=== PATIENT | male | born 1945 | race Caucasian/White ===

== ENCOUNTER 2023-04-17 09:09 | Emergency (ER) | payer MEDICARE, OTHER, SELFPAY ==
[2023-04-17 09:16] VITALS: BP 148/81
--- NOTE | 2023-04-17 10:55 | ED.GENMED ---
History of Present Illness
General
Chief Complaint: Chest Pain
Source: patient
Exam Limitations: none
Time Seen by Provider: 04/17/23 10:37
Nursing documentation reviewed up to this point in time: agreed with
Travel History
Have you had any contact with someone who has COVID-19?: No
Do you have any symptoms of coronavirus? Fever > 100 degrees, chills, cough, shortness of breath, sore throat, loss of taste or smell, muscle aches, or headache?: No
History of Present Illness
History of Present Illness:
Patient with history of CAD, on aspirin and Brilinta, and pulmonary embolism over 10 years ago after traveling, presents to ED secondary to intermittent right-sided 'humming' sensation over the past 3 days, after returning from 2-hour flight to
[place]. Denies chest pain. Denies shortness of breath. Denies nausea, vomiting, or diarrhea. Denies leg pain or swelling. Denies back pain. Patient states that when he had MRI last October and pulmonary embolism, his symptoms were completely
different. Of note, over the past 4 to 5 days, patient also has had increased nasal congestion and intermittent cough. In addition, at the recommendation of his dish cloth inspector, Dr. Salgado, prior to departure to [place], patient switched his
anticoagulation medications from Brilinta to Xarelto 10 mg, 3 days preceding the trip, and 3 days after returning from the trip. Patient restarted Brilinta last night.
Past History
Past History
ED Past Medical History: Arrthythmia, Asthma, HTN and Other (DVT, PE, Sleep apnea, sciatica)
ED Past Surgical History: Appendectomy
Patient has exhibited threatening behavior?: No
PSI?: No
Social History
Tobacco: Non-smoker
Alcohol: None
Personal:
Living: with family
Review of Systems
Review of Systems
Allergies reviewed?: Yes
All Other Systems: ROS reviewed and negative except as documented in HPI and ROS
Constitutional: Reports no symptoms
EENT: Reports other (Nasal congestion)
Respiratory: Reports cough; Denies trouble breathing
Cardiac: Reports no symptoms; Denies chest pain
ABD/GI: Reports no symptoms
: Reports no symptoms
Musculoskeletal: Reports no symptoms
Skin: Reports no symptoms
Neurological: Reports no symptoms
Phy Exam
Physical Exam
Physical Exam:
Physical Exam
General: no apparent distress, not acutely ill. afebrile
Head: nc/at. eomi
Neck: supple. no meningeal signs
Heart: s1/s2 regular rate and rhythm, no murmur. equal radial pulses.
Lungs: no acute respiratory distress. clear bilaterally. chest wall nontender to palpation
Abdomen: normal bowel sounds. not tender.
Neuro: alert and oriented. no focal neurological deficits
Skin: no rash
Psychiatric: well kept. interactive and cooperative
Extremities: no edema. no calf tenderness.
Scores
Heart Score for Chest Pain Patients
STEMI patient?: Not applicable
Course
Orders/Labs/Results
Orders:
Orders
04/17/23 09:11
Electrocardiogram (*1) Urgent
Reason for Study: Chest Pain
EKG- Treatment ONCE
04/17/23 10:49
Albuterol Nebs [Ventolin Nebules] 2.5 mg INH R NOW STA
CR Chest - 2 Views Urgent
Comment:
Reason For Exam: cough/sob
04/17/23 11:09
COVID-19 Antigen Urgent
Source: Nasal Swab
04/17/23 13:40
Dexamethasone Pf [Decadron] 10 mg PO NOW STA
Vital Signs
Initial and Last Documented VS:
Initial Vital Signs
Temp Pulse Resp BP Pulse Ox
97.8 F 77 18 148/81 96
04/17/23 09:16 04/17/23 09:16 04/17/23 09:16 04/17/23 09:16 04/17/23 09:16
Last Documented Vital Signs
Temp Pulse Resp BP Pulse Ox
97.8 F 77 18 144/94 95
04/17/23 09:16 04/17/23 09:16 04/17/23 09:16 04/17/23 11:10 04/17/23 11:30
MDM/Problems Addressed
MDM/Problems Addressed:
History and exam consistent with likely viral mediated URI, less likely PE or any other acute process. Pt expresses understanding at time of discharge. As such, patient will be treated supportively with symptomatic treatment, along with close PCP
f/u. Pt will return with worsening symptoms.
*Critical Care Note
Total Time (30-74mins, 75-104mins- exclusive of procedures): Not Applicable
ED Attending Note
-
Portions of this chart may have been created with voice recognition software.� Occasional wrong word or��sound alike� substitutions may have occurred due to the inherent limitations of voice recognition software.
Discharge Plan
Departure
Patient Disposition: Home (Routine Discharge)
Date of Disposition: 04/17/23
Time of Disposition: 13:41
Patient with high blood pressure during this ER visit?: Yes
Condition: Good
Discharge Problem:
Bronchitis
Instructions: Acute Bronchitis, Adult (DC)
Prescriptions:
No Action
aspirin 81 MG tablet,delayed release (DR/EC)
81 mg PO DAILY
fluoxetine 10 mg Tablet
20 mg PO DAILY
lisinopril 10 mg Tablet
10 mg PO DAILY
Brilinta 90 mg Tablet
90 mg PO BID Qty: 60 12RF
ascorbic acid (vitamin C) [Vitamin C] 500 mg Tablet
1,000 mg PO NOON Qty: 0
saw palmetto 160 mg Capsule
160 mg PO NOON Qty: 0
cholecalciferol (vitamin D3) [Vitamin D3] 25 mcg (1,000 unit) Tablet
25 mcg PO NOON Qty: 0
acetaminophen [Tylenol] 325 mg Tablet
650 mg PO Q6HPRN PRN (Reason: mild pain)
Ocuvite Tablet
1 tab PO NOON
[place] 3 Fish Oil 684-1,200 mg Capsule,Delayed Release(Dr/Ec)
2 cap PO NOON
Metamucil Fiber Thin 2 gram Wafer
2 wafer PO QPM
Airborne (ascorbic acid) 250-8.875 mg Tablet,Chewable
3 tab PO DAILYPRN PRN (Reason: sore throat, cough, sneezing )
atorvastatin 20 mg tablet
40 mg PO QPM
Referrals:
Linda Rees CRNP [Family Provider] -
Activity Restrictions/Additional Instructions:
As discussed, please follow-up with your primary care physician for further evaluation and treatment.
Interventions
Interventions:
*ED COVID-19 Vaccine History Last Done: 04/17/23 09:16
*Nursing Disposition Last Done: 04/17/23 13:50
ED- Cardiac Assessment Last Done: 04/17/23 11:17
Discharge Date and Time
Discharge Date/Time: 04/17/23 13:50
[2023-04-17] MEDS: VENTOLIN NEBULES 2.5 MG INH (11:06)
[2023-04-17 11:10] VITALS: BP 144/94
[2023-04-17 11:50] LABS: COVID-19 Antigen Negative (Negative)
[2023-04-17] MEDS: DECADRON 10 MG PO (13:46)
== END 2023-04-17 13:50 | disposition home or self-care (01) ==
LOC: EMR 09:09
PROVIDERS: EMERGENCY PHYSICIAN Emergency Medicine; FAMILY PHYSICIAN Nurse Practitioner Adult Health
DX: J40 Bronchitis, not specified as acute or chronic (principal); Z11.52 Encounter for screening for COVID-19; I10 Essential (primary) hypertension; I25.10 Atherosclerotic heart disease of native coronary artery without angina pectoris; Z79.01 Long term (current) use of anticoagulants; Z86.711 Personal history of pulmonary embolism
CPT/HCPCS: 99285; 94640; 71046; 87811; 93005

== ENCOUNTER 2023-09-26 11:07 | Inpatient (IN) | payer MEDICARE, OTHER, SELFPAY ==
[2023-09-26] VITALS (12 sets, daily range): BP systolic 105–155; BP diastolic 67–90
--- NOTE | 2023-09-26 09:19 | ED.GENMED ---
History of Present Illness
General
Chief Complaint: Cardiac Symptoms
Source: patient, records and ambulance crew
Exam Limitations: none
Time Seen by Provider: 09/26/23 09:16
Nursing documentation reviewed up to this point in time: agreed with
History of Present Illness
History of Present Illness:
Patient is a 78-year-old male with known right coronary artery disease based on catheterization from 11 months ago and presents via EMS with crushing chest pain and diaphoresis. Patient states he had breakfast today and began to have some
discomfort and feeling nauseous. Patient states he felt he needed to have a bowel movement and did and the pain and diaphoresis got worse. Patient denies shortness of breath. Patient on prehospital EKG showed inferior wall STEMI. Patient was
given nitro and 324 mg of aspirin en route. Patient states that crushing chest pain was 10 out of 10 but seems again slightly better at this time. Patient denies any recent exertional symptoms. Patient denies fever or chills. Patient denies
nasal congestion, sore throat or cough. Patient denies abdominal pain, vomiting or diarrhea. Patient denies any leg pain or swelling.
Past History
Past History
ED Past Medical History: Arrthythmia, Asthma, CAD, HTN and Other (DVT, PE, Sleep apnea, sciatica)
ED Past Surgical History: Appendectomy
Patient has exhibited threatening behavior?: No
PSI?: No
Social History
Tobacco: Non-smoker
Alcohol: None
Personal:
Living: with family
Review of Systems
Review of Systems
All Other Systems: ROS reviewed and negative except as documented in HPI and ROS
Constitutional: Reports no symptoms
EENT: Reports no symptoms
Respiratory: Denies cough or trouble breathing
Cardiac: Reports chest pain and diaphoresis; Denies palpitations or syncope
ABD/GI: Reports nausea; Denies abdominal pain, vomiting or diarrhea
: Reports no symptoms
Musculoskeletal: Reports no symptoms
Skin: Reports no symptoms
Neurological: Reports no symptoms
Hematologic/Lymphatic: Reports no symptoms
Phy Exam
Physical Exam
Physical Exam:
Physical Exam
General: significant distress, alert and appropriate, well nourished, well hydrated
HENT: Normocephalic, supple with no lymphadenopathy, no thyromegaly
Eyes: Clear sclera, conjuctiva without injection
Heart: Regular rhythm and bradycardic rate. No S3, S4. No murmur. No NVD
Lungs: No respiratory distress, no stridor, lung sounds clear and equal bilaterally, chest wall symmetrical and nontender
Abdomen: Soft, nontender, no organomegaly, BS good
Neuro: Alert and oriented x 3, CN II - XII intact, no motor focality
Skin: no rash
Psychiatric: well kept. interactive and cooperative
Extremities: No edema, cyanosis, tenderness, Good and equal peripheral pulses.
Scores
Heart Score for Chest Pain Patients
STEMI patient?: Yes
Course
Orders/Labs/Results
Orders:
Orders
09/26/23 09:10
EKG [Electrocardiogram (*1)] Urgent
Reason for Study: Chest Pain
EKG- Treatment ONCE
09/26/23 09:12
Complete Blood Count/With Diff Urgent
Comprehensive Metabolic Panel Urgent
Prothrombin Time Urgent
Troponin I Urgent
Morphine Sulfate 4 mg .ROUTE .STK-MED ONE
Ondansetron Injectable [Zofran] 4 mg .ROUTE .STK-MED ONE
*Pulse Oximetry
Patient hypoxic: no
*EKG
Interpreted by ED Provider?: Yes
EKG Intrepretation Date: 09/26/23
EKG Intrepretation Time: 09:22
Interpretation: abnormal
Comparison EKG: changes noted (Increased ST elevation in the inferior leads)
Heart Rate: 52
Rate: bradycardiac
Rhythm: sinus
[place]: left axis deviation
Interval: normal interval
QRS Pattern: right bundle branch block
Ischemia: ST elevation (inferiorly)
*Mannequin Mold Maker Interpretation
Rate: bradycardiac
Interpretation: normal
Heart Rate: 52
Rhythm: sinus
*Critical Care Note
Total Time (30-74mins, 75-104mins- exclusive of procedures): 20 minutes
ED Attending Note
-
Portions of this chart may have been created with voice recognition software.� Occasional wrong word or��sound alike� substitutions may have occurred due to the inherent limitations of voice recognition software.
Discharge Plan
Departure
Patient Disposition: DRUPAL DEVELOPER
Date of Disposition: 09/26/23
Time of Disposition: 09:23
Admit to: laboratory technologist
Admit to doctor: aurelia
Presentation/result/management discussed w/ accepting MD/DO: cardiology
Patient with high blood pressure during this ER visit?: Yes
Covid-19: Not Applicable
Discharge Problem:
ST elevation (STEMI) myocardial infarction
Prescriptions:
No Action
aspirin 81 MG tablet,delayed release (DR/EC)
81 mg PO DAILY
fluoxetine 10 mg Tablet
20 mg PO DAILY
lisinopril 10 mg Tablet
10 mg PO DAILY
Brilinta 90 mg Tablet
90 mg PO BID Qty: 60 12RF
ascorbic acid (vitamin C) [Vitamin C] 500 mg Tablet
1,000 mg PO NOON Qty: 0
saw palmetto 160 mg Capsule
160 mg PO NOON Qty: 0
cholecalciferol (vitamin D3) [Vitamin D3] 25 mcg (1,000 unit) Tablet
25 mcg PO NOON Qty: 0
acetaminophen [Tylenol] 325 mg Tablet
650 mg PO Q6HPRN PRN (Reason: mild pain)
Ocuvite Tablet
1 tab PO NOON
[place] 3 Fish Oil 684-1,200 mg Capsule,Delayed Release(Dr/Ec)
2 cap PO NOON
Metamucil Fiber Thin 2 gram Wafer
2 wafer PO QPM
Airborne (ascorbic acid) 250-8.875 mg Tablet,Chewable
3 tab PO DAILYPRN PRN (Reason: sore throat, cough, sneezing )
atorvastatin 20 mg tablet
40 mg PO QPM
Interventions
Interventions:
*Risk Screen - Suicide Last Done: 09/26/23 09:16
*General Assessment Last Done: 09/26/23 09:16
*Neglect/Abuse Screening Last Done: 09/26/23 09:16
*ED COVID-19 Vaccine History Last Done: 09/26/23 09:17
Discharge Date and Time
Print Language: VINCENTIAN
[2023-09-26 09:21] LABS: % Basophils 0.5 % (0-2); % Eosinophils 2.7 % (0-6); % Immature Granulocytes 0.9 % (0-0.5); % Lymphocytes 32.2 % (20.5-51.1); % Monocytes 9.3 % (1.7-9.3); % Neutrophils 54.4 % (42.2-75.2); Absolute Eosinophils 0.2 10^3/uL (0-0.7); Absolute Immature Granulocytes 0.1 10^3/uL (0-0.05); Absolute Lymphocytes 2.8 10^3/uL (1.2-3.4); Absolute Monocytes 0.8 10^3/uL (0.1-0.6); Absolute Neutrophils 4.7 10^3/uL (1.4-6.5); Hematocrit 42.7 % (39.0-52.0); Hemoglobin 14.6 g/dL (13.0-18.0); Mean Corp Hgb Conc. 34.2 g/dL (33.0-37.0); Mean Corpuscular Volume 87.7 fL (80.0-94.0); Mean Platelet Volume 9.3 fL (7.4-10.4); Nucleated Red Blood Cells % 0 % (-); Platelet Count 183 10^3/uL (130-400); Red Blood Cell Count 4.87 10^6/uL (4.70-6.10); Red Cell Dist. Width 14.5 % (11.5-14.5); White Blood Cell Count 8.6 10^3/uL (4.8-10.8)
[2023-09-26 09:29] LABS: INR 1.02; PT 13.2 Sec (11.4-14.6)
[2023-09-26 09:31] LABS: ALT (SGPT) 31 U/L (0-50); AST (SGOT) 34 U/L (17-59); Albumin 4.1 g/dl (3.5-5.0); Alkaline Phosphatase 67 U/L (38-126); Blood Urea Nitrogen 21 mg/dl (9-20); Calcium 9.1 mg/dl (8.4-10.2); Carbon Dioxide 21 mmol/L (22-30); Chloride 106 mmol/L (98-107); Glucose 160 mg/dl (70-99); Potassium 4.4 mmol/L (3.5-5.1); Sodium 138 mmol/L (135-145); Total Protein 6.6 g/dl (6.3-8.2); eGFR > 60.00
[2023-09-26 09:45] LABS: ACT-LR - POC 215 Seconds (116-155)
[2023-09-26 09:48] LABS: Troponin I 0.412 ng/ml
[2023-09-26 10:20] LABS: ACT-LR - POC 176 Seconds (116-155)
[2023-09-26 10:33] LABS: ACT-LR - POC 265 Seconds (116-155)
--- NOTE | 2023-09-26 11:24 | PTCARENOTE ---
received pt from [facility], right radial band CDI. Pt is SB on the monitor, hr 48, vss. pt offers no complaints at this time. at bedside visiting. pt oriented to unit, call tsang within reach.
--- NOTE | 2023-09-26 11:28 | HPS.HSE ---
Family Physician
-
Family Physician: INTERVIEWE UNKNOWN - PT NOT
Chief Complaint
-
Chest pain
History of Present Illness
Mr. Rebolledo is a 78-year-old gentleman with past medical history of hypertension, bifascicular block, hyperlipidemia, prior DVT/PE, NSTEMI in October 2022 with peak troponin of 5.86 with cardiac catheterization showing likely occlusion of the RV
marginal, medically managed on aspirin and Plavix, obstructive sleep apnea, paroxysmal SVT (found to have short runs of atrial tachycardia on prior Holter monitors), stable asthma who presents with acute onset substernal chest discomfort this
morning found to have an inferior ST elevation CT in the setting of a baseline right bundle branch block for which heart catheterization team was emergently activated and patient was taken to the heart catheterization lab. He had breakfast this
morning and started to experience 10-10 substernal chest discomfort for which she called EMS. Initial EKG showing ST elevation in the inferior leads for which a prehospital ST elevation CT was called in. Patient had improvement in symptoms by time
he presented to the emergency department with chest pain down to 5 out of 10.
Medical History
Past Medical History
Past Medical History: Reports CAD, HTN and Hypercholesterolemia
Past Surgical History: Reports None
Social History
Tobacco: Non-smoker
Alcohol: None
Drug: None
Personal:
Living: With Family
Employment: Retired
Family History
Family History: Not pertinent
Allergies / Home Medications
Allergies reflects when Allergies were last updated in [facility].
Home Medications with original date entered in [facility]
Allergy/Medication List:
Allergy list reviewed.
Medication List not available.
Review of Systems
-
A 12 point ROS was completed and negative except as noted: Yes
Physical Exam
Vital Signs
Vital Signs
Temp Pulse Resp BP Pulse Ox
97.9 F 54 12 127/78 96
09/26/23 09:15 09/26/23 09:15 09/26/23 09:15 09/26/23 09:15 09/26/23 09:15
Physical Exam
General: Well Developed, Well Nourished, Appears in Distress and Other (Mild distress from chest pain)
HEENT: NormoCephalic and Moist mucous membranes
Respiratory: Clear and Non Labored Respirations; No Wheezes or Crackles
Cardiac: S1/S2, Regular Rhythm, Bradycardia and Carotid Pulses; No Murmur, Rub or Gallop
Breast: Deferred by me
GI: Soft, Non Tender, Non Distended and Normal Bowel Sounds
Musculoskeletal: No Clubbing, No Cyanosis and No Edema
Neuro: AO x 3
Psych: Other (Mild distress from pain)
Laboratory Results
-
09/26/23 09:12
09/26/23 09:12
Laboratory Results
PT 13.2 Sec (11.4-14.6) 09/26/23 09:12
INR 1.02 09/26/23 09:12
Total Bilirubin 2.0 mg/dl (0.2-1.3) H 09/26/23 09:12
AST 34 U/L (17-59) 09/26/23 09:12
ALT 31 U/L (0-50) 09/26/23 09:12
Alkaline Phosphatase 67 U/L (38-126) 09/26/23 09:12
Troponin I 0.412 ng/ml H* 09/26/23 09:12
Data Reviewed
-
Critical Care Time (in minutes): 35
Diagnostic Radiology: Report Reviewed by me
Ultrasound: Report Reviewed by me
Medical Tests (Nuc Med, Echo, EKG etc): Image Personally Visualized and interpreted
Lab Data: Labs Reviewed by me
Old Records: Reviewed
Impression/Plan
-
IMPRESSION: Mr. Rebolledo is a 78-year-old gentleman with past medical history of hypertension, bifascicular block, hyperlipidemia, prior DVT/PE, NSTEMI in October 2022 with peak troponin of 5.86 with cardiac catheterization showing likely occlusion of
the RV marginal, medically managed on aspirin and Plavix, obstructive sleep apnea, paroxysmal SVT (found to have short runs of atrial tachycardia on prior Holter monitors), stable asthma who presents with acute onset substernal chest discomfort this
morning found to have an inferior ST elevation CT in the setting of a baseline right bundle branch block for which heart catheterization team was emergently activated and patient was taken to the heart catheterization lab.
PLAN:
#Inferior STEMI
-Status post mid to distal RCA PCI with a 4.0 x 28 mm Xience shiraz point drug-eluting stent, postdilated with a 5.0 x 20 mm NC trek balloon at 18 giovanny.
-Uninterrupted dual antiplatelet therapy with daily baby aspirin and Brilinta 90 mg twice daily along with high intensity statin.
-Echocardiogram is pending
-Trend troponins and EKGs with close monitoring on telemetry. Hold on beta-blockers for now given baseline bradycardia in the setting of bifascicular block. Of note, patient has had wheezing previously in the setting of known asthma
-Eventual referral for outpatient cardiac rehab
-Aggressive management of cardiovascular risk factors
#Hypertension
-Chronic, stable.
-Hold lisinopril for now until we have a better handle of hemodynamics. Resume home lisinopril when stable.
#Hypercholesterolemia
-Chronic, stable.
-Change from 40 mg of daily atorvastatin to 80 mg daily
#Prior history of DVT/PE
-Has been taking rivaroxaban 10 mg PRN flying.
#Asthma
-Stable.
Hayley Kidd MD, [facility], [facility]
--- NOTE | 2023-09-26 11:39 | ITS.CL.CATH ---
Court Administrator - Catheterization
Cardiac Catheterization
Procedure Report:
LEFT HEART CATHETERIZATION AND CORONARY INTERVENTION
Date of Procedure: September 26, 2023
Referring: [place] emergency department
PROCEDURES:
1. Left heart catheterization, coronary angiogram.
2. Mechanical thrombectomy using EDUARDO catheter.
3. Successful percutaneous coronary artery intervention of 100% acute thrombotic distal RCA occlusion (EPI 0 flow, lesion type C) with a 4.0 x 28 mm Xience shiraz point drug-eluting stent, postdilated with a 5.0 x 20 mm NC trek balloon at 18 giovanny,
with an excellent angiographic result.
INDICATION: Mr. Rebolledo is a 78-year-old gentleman with past medical history of hypertension, bifascicular block, hyperlipidemia, prior DVT/PE, NSTEMI in October 2022 with peak troponin of 5.86 with cardiac catheterization showing likely occlusion of
the RV marginal, medically managed on aspirin and Plavix, obstructive sleep apnea, paroxysmal SVT (found to have short runs of atrial tachycardia on prior Holter monitors), stable asthma who presents with acute onset substernal chest discomfort this
morning found to have an inferior ST elevation VT in the setting of a baseline right bundle branch block for which heart catheterization team was emergently activated and patient was taken to the heart catheterization lab. He was eating breakfast
this morning and had sudden onset of 10 out of 10 substernal chest discomfort for which she called EMS. Initial ECG concerning for possible ST elevation in the inferior leads for which a prehospital ST elevation VT was called in. Patient was still
having 5 out of 10 chest pain in the emergency department. He was given 5000 units of unfractionated IV heparin, 1 sublingual nitroglycerin, 180 mg of ticagrelor, 4 mg of Zofran and emergently brought up to the heart catheterization lab after
informed detailed consent was reviewed
ACCESS: Right radial artery, 6 [place] sheath, under ultrasound guidance
HEMODYNAMICS : (mmHg)
AO (s/d) : 113/64
LV (s/d) : 108/13
LVEDP : 30
CORONARY FINDINGS
DOMINANCE: Right
LEFT MAIN: The left main artery is a large-caliber vessel which gives rise to the left anterior descending artery and the left circumflex artery. There is minimal luminal irregularities.
LEFT ANTERIOR DESCENDING: The left anterior descending artery is a medium caliber vessel which gives rise to 2 major diagonal branches as it courses to the anterior interventricular groove towards the apex. There is minimal luminal irregularities.
CIRCUMFLEX: The left circumflex artery is a medium caliber vessel which gives rise to 2 major obtuse marginal branches. There is minimal luminal irregularities.
RIGHT CORONARY ARTERY: The right coronary artery is a large-caliber, very ectatic dominant vessel which gives rise to the right posterior descending artery and the right posterolateral system. There is 100% distal RCA acute thrombotic occlusion
with EPI 0 flow. This was culprit of presenting acute coronary syndrome and intervention was performed
CORONARY INTERVENTION: Additional heparin was given to maintain therapeutic ACT throughout the case. Given the high burden of thrombus, we also additionally gave to bolus doses of Integrilin. Using a 6 [place] JR4 guide we attempted initially
crossing the lesion with a 190 cm 0.014' power turn flex coronary wire however there was very poor guide support. At this time we decided to switch out the guides and brought in a 6 [place] AL 0.75 guide catheter and through this attempted again
crossing with a power turn flex wire however the wire kept prolapsing into the mid to distal RCA and not crossing the lesion. We left the wire in place in the mid RCA and brought in a 300 cm 0.014' corporate pilot 50 coronary wire through a quick cross
microcatheter and after multiple attempts we were finally able to successfully cross the lesion. We advanced the microcatheter into the distal RCA and confirmed that we were indeed intraluminal. Through the quick cross we now advanced a 300 cm
0.014 BMW coronary wire into the large left posterolateral branch. We retracted out the quick cross and over the wire we advanced the EDUARDO catheter performing multiple passes in the distal vessel. Subsequently we tried advancing a stent however we
were not able to successfully advance this into the distal vessel. At this point we brought in a 6 [place] guide liner for additional support to deliver the stent. Through guide liner support, we placed a 4.0 x 28 mm Xience shiraz point drug-eluting
stent in the distal RCA with samaritan of antegrade flow. The stent was further postdilated using a 5.0 x 20 mm NC trek balloon at 18 giovanny with an excellent angiographic result and EPI-3 flow restored into the distal branches. Patient was chest
pain-free at the end of the case. No acute complications.
SEDATION: 77 minutes of procedural sedation was utilized. An independent medical billing supervisor was present to assist with and help manage the patient's level of consciousness and physiologic status.
RADIATION SUMMARY: Fluoro Time (min): 21.2, Dose (mGy): 1408.3, DAP (Gy.cm2) : 117.1
Closure Device: Vascular band over right radial artery, 11cc air
CONCLUSIONS
1. Successful percutaneous coronary artery intervention of 100% acute thrombotic distal RCA occlusion (EPI 0 flow, lesion type C) with a 4.0 x 28 mm Xience shiraz point drug-eluting stent, postdilated with a 5.0 x 20 mm NC trek balloon at 18 giovanny, with
an excellent angiographic result.
2. Otherwise nonobstructive coronary artery disease.
3. Elevated LVEDP at 30 mmHg
RECOMMENDATIONS
1. Uninterrupted dual antiplatelet therapy with daily baby aspirin and Brilinta 90 mg twice daily along with high intensity statin.
2. Echocardiogram is pending
3. Trend troponins and EKGs with close monitoring on telemetry. Hold on beta-blockers for now given some bradycardia during the procedure, initiate once able.
4. Eventual referral for outpatient cardiac rehab
5. Aggressive management of cardiovascular risk factors
Hayley Kidd MD, FAC, [facility]
[2023-09-26] MEDS: TYLENOL 650 MG PO (11:45)
[2023-09-26 15:26] LABS: Glycohemoglobin (HgbA1c) 5.6 % (4.0-5.6)
--- NOTE | 2023-09-26 16:02 | PTCARENOTE ---
pt had a 14 beat run of VT, pt asymptomatic, VSS. Notified Dr. Grant about VT and trop of 111. continue with care. pt educated on plan if care and pt verbalized understanding. call tsang within reach.
[2023-09-26] MEDS: LIPITOR 80 MG PO (18:00)
[2023-09-26] MEDS: HEPARIN 5000 UNITS SC ×2 (18:00→23:46)
[2023-09-26] MEDS: BRILINTA 90 MG PO (20:32)
[2023-09-27 02:13] VITALS: BP 124/72
[2023-09-27 02:27] LABS: % Basophils 0.3 % (0-2); % Eosinophils 0.7 % (0-6); % Immature Granulocytes 0.5 % (0-0.5); % Monocytes 10.8 % (1.7-9.3); % Neutrophils 77.7 % (42.2-75.2); Absolute Eosinophils 0.1 10^3/uL (0-0.7); Absolute Immature Granulocytes 0.1 10^3/uL (0-0.05); Absolute Lymphocytes 1.1 10^3/uL (1.2-3.4); Absolute Monocytes 1.1 10^3/uL (0.1-0.6); Absolute Neutrophils 8.1 10^3/uL (1.4-6.5); Hematocrit 42.8 % (39.0-52.0); Hemoglobin 14.1 g/dL (13.0-18.0); Mean Corp Hgb Conc. 32.9 g/dL (33.0-37.0); Mean Corpuscular Hgb 30.2 pg (27.0-31.0); Mean Corpuscular Volume 91.6 fL (80.0-94.0); Mean Platelet Volume 9.3 fL (7.4-10.4); Nucleated Red Blood Cells % 0 % (-); Platelet Count 164 10^3/uL (130-400); Red Blood Cell Count 4.67 10^6/uL (4.70-6.10); Red Cell Dist. Width 14.4 % (11.5-14.5); White Blood Cell Count 10.5 10^3/uL (4.8-10.8)
[2023-09-27 02:48] LABS: Blood Urea Nitrogen 20 mg/dl (9-20); Calcium 8.8 mg/dl (8.4-10.2); Carbon Dioxide 25 mmol/L (22-30); Chloride 108 mmol/L (98-107); Glucose 116 mg/dl (70-99); HDL Cholesterol 50 mg/dl; LDL Cholesterol, Calculated 54 mg/dl; Potassium 4.6 mmol/L (3.5-5.1); Sodium 139 mmol/L (135-145); Total Cholesterol 124 mg/dl (50-199); Triglyceride 100 mg/dl (10-149); Very Low Density Lipoprotein 20 mg/dl (0-30); eGFR > 60.00
--- NOTE | 2023-09-27 05:15 | PTCARENOTE ---
Patient resting comfortable overnight. Denies chest pain, troponin trending downward, right radial site CDI. SB occasional PVC, call tsang in reach
[2023-09-27 07:19] VITALS: BP 111/71
[2023-09-27] MEDS: LOW STRENGTH ASPIRIN 81 MG PO (07:55)
[2023-09-27] MEDS: BRILINTA 90 MG PO ×2 (07:55→19:52)
[2023-09-27] MEDS: HEPARIN 5000 UNITS SC ×3 (07:55→23:31)
[2023-09-27] MEDS: LIDOCAINE 4% PATCH 1 PATCH TOPICAL (09:52)
[2023-09-27 11:14] VITALS: BP 115/63
--- NOTE | 2023-09-27 13:30 | CM ---
jonah langston at [facility]- his first month $ 109.83 he is in the coverage gap, pt is aware and is agreeable to the cost, 30 day free coupon in pts red dc folder
--- NOTE | 2023-09-27 15:21 | CM ---
spoke to pt in room, he is prev indep, lives with is in a 2 story home with a first floor set up and 3 steps to enter. he denies any dc planning needs or dme's. plan is for dc to home when medically stable.
[2023-09-27 15:25] VITALS: BP 100/78
[2023-09-27] MEDS: LIPITOR 80 MG PO (17:41)
[2023-09-27 18:44] VITALS: BP 117/93
--- NOTE | 2023-09-27 22:56 | PTCARENOTE ---
Denied any complaints of pain or discomfort. SB, SR on the monitor 50-60's .
[2023-09-27 23:32] VITALS: BP 91/64
[2023-09-28 03:35] VITALS: BP 107/76
--- NOTE | 2023-09-28 07:02 | W.PN.UPDATE ---
Update Note
Progress Note Update
I saw and examined Mr Rebolledo yesterday 09-26 . Note somehow deleted
He had no CP, SOB or palpitations
Telem review showed 6-8 beat run NSVT in early AM hours on 09-26.
Labs all stable
Angiogram reviewed- excellent RCA PCI result for acute inferior STEMI by Dr. Kidd
ECHO reviewed showing normal LVEF without significant valve disease. Mildly dilated aorta
Plan made for continued monitoring with probable discharge 09-27
[2023-09-28] MEDS: HEPARIN 5000 UNITS SC (07:36)
[2023-09-28] MEDS: LIDOCAINE 4% PATCH 1 PATCH TOPICAL (07:36)
[2023-09-28] MEDS: LOW STRENGTH ASPIRIN 81 MG PO (07:36)
[2023-09-28] MEDS: BRILINTA 90 MG PO (07:36)
[2023-09-28 07:47] VITALS: BP 115/69
--- NOTE | 2023-09-28 08:25 | PTCARENOTE ---
received patient this am sitting in chair waiting for breakfast. monitor shows NSR, VSS. right radial CINTHYA, no ecchymosis, no hematoma, distal pulse palpable, lung youssef wheezing throughout, patient stated, 'I haven't had my inhalers for 3 days.'
lidocaine patch placed on left shoulder, neck area, chronic pain.
--- NOTE | 2023-09-28 08:51 | W.PN.UPDATE ---
Update Note
Progress Note Update
Looks and feels well
VSS Afeb
Cor RR no murmur
Lungs clear
Ext : radial pulse intact
Telem: Occ VPDs one triplet
OK for d/c on DAPT
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
--- NOTE | 2023-09-28 11:23 | W.DS.TRANS ---
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
-
Discharge Instructions:
Discharge Diagnosis/Procedures Inferior STEMI
SAMMIE to dRCA
Procedure: Cardiac catheterization 09/26/2023
Diet Low Cholesterol,2 Gram Sodium
Activity No strenuous activity
Additional Activity See attached instructions
Driving Restrictions No driving for 24 hours
Bathing Restrictions None
Other Services Cardiac Rehab
Instructions:
Stand-Alone Forms: DC Instructions- Cath/EP Lab
Changes to Home Medications: Yes
Discharge Medications:
DC Medications w/original date entered in [facility]
fluoxetine 10 mg tablet 20 mg PO DAILY Mental Health/Anxiety 11/01/22
cholecalciferol (vitamin D3) 25 mcg (1,000 unit) tablet (Vitamin D3) 25 mcg PO NOON Supplement ##0 11/10/22
saw palmetto 160 mg capsule 160 mg PO NOON Supplement ##0 11/10/22
acetaminophen 325 mg tablet (Tylenol) 650 mg PO Q6HPRN PRN mild pain 04/17/23
lclxrtwk-mbteyspy-obm C 250 mg-herbal no.124 8.875 mg chewable tablet (Airborne (ascorbic acid)) 3 tab PO DAILYPRN PRN sore throat, cough, sneezing 04/17/23
psyllium husk (with sugar) 2 gram oral wafer (Metamucil Fiber Thin) 2 wafer PO QPM Constipation 04/17/23
vitamin A-vitamin C-vit E-min tablet 1 tab PO NOON Supplement 04/17/23
atorvastatin 80 mg tablet 80 mg PO QPM High cholesterol #90 tabs 09/27/23
ticagrelor 90 mg tablet (Brilinta) 90 mg PO BID #60 tabs 09/27/23
aspirin 81 mg tablet,delayed release 81 mg PO DAILY Heart disease/condition #0 tabs 09/28/23
omega-3 fatty acids-fish oil 684 mg-1,200 mg capsule,delayed release 2 cap PO NOON Home supplement #0 caps 09/28/23
Home Medication Changes
Clopidogrel was discontinued and ticagrelor was initiated
Lisinopril was stopped
Atorvastatin was increased
Pending Results: No
--- NOTE | 2023-09-28 12:50 | PTCARENOTE ---
D/C instructions given to patient and , both verbalizes understanding. INT taken out by PCT, telemetry removed. personal belongings packed and sent home with patient. D/C to home via wc accompanied by staff.
== END 2023-09-28 12:47 | disposition home or self-care (01) | DRG 322 ==
LOC: IVU 11:07
PROVIDERS: ADMITTING PHYSICIAN Internal Medicine Interventional Cardiology; ATTENDING PHYSICIAN Internal Medicine; EMERGENCY PHYSICIAN Emergency Medicine; FAMILY PHYSICIAN Nurse Practitioner Adult Health
PROC: 4A023N7 Measurement of Cardiac Sampling and Pressure, Left Heart, Percutaneous Approach (ICD-10-PCS; 2023-09-26)
PROC: 02C03ZZ Extirpation of Matter from Coronary Artery, One Artery, Percutaneous Approach (ICD-10-PCS; 2023-09-26)
PROC: 027034Z Dilation of Coronary Artery, One Artery with Drug-eluting Intraluminal Device, Percutaneous Approach (ICD-10-PCS; 2023-09-26)
PROC: B2111ZZ Fluoroscopy of Multiple Coronary Arteries using Low Osmolar Contrast (ICD-10-PCS; 2023-09-26)
DX: I21.19 ST elevation (STEMI) myocardial infarction involving other coronary artery of inferior wall (principal); I45.2 Bifascicular block; I47.19 Other supraventricular tachycardia; I10 Essential (primary) hypertension; J45.909 Unspecified asthma, uncomplicated; I77.810 Thoracic aortic ectasia; I25.10 Atherosclerotic heart disease of native coronary artery without angina pectoris; I25.2 Old myocardial infarction; E78.00 Pure hypercholesterolemia, unspecified; G47.33 Obstructive sleep apnea (adult) (pediatric); Z79.82 Long term (current) use of aspirin; Z79.02 Long term (current) use of antithrombotics/antiplatelets; Z79.899 Other long term (current) drug therapy; Z86.711 Personal history of pulmonary embolism; Z86.718 Personal history of other venous thrombosis and embolism
CPT/HCPCS: 80048; 80053; 80061; 83036; 84484; 85025; 85347; 85610; 93005; 93306; 93458; 99152; 99153; 99285; C1725; C1769; C1874; C1887; C1894; C9606; J1327; Q9967

== ENCOUNTER 2023-10-16 12:46 | Inpatient (IN) | payer MEDICARE, OTHER, SELFPAY ==
[2023-10-16] VITALS (8 sets, daily range): BP systolic 112–124; BP diastolic 64–81; BMI 32.9
[2023-10-16 10:01] LABS: % Basophils 0.7 % (0-2); % Eosinophils 2.6 % (0-6); % Immature Granulocytes 0.8 % (0-0.5); % Lymphocytes 17.9 % (20.5-51.1); % Monocytes 10.2 % (1.7-9.3); % Neutrophils 67.8 % (42.2-75.2); Absolute Eosinophils 0.2 10^3/uL (0-0.7); Absolute Immature Granulocytes 0.1 10^3/uL (0-0.05); Absolute Lymphocytes 1.1 10^3/uL (1.2-3.4); Absolute Monocytes 0.6 10^3/uL (0.1-0.6); Absolute Neutrophils 4.1 10^3/uL (1.4-6.5); Hematocrit 41.1 % (39.0-52.0); Hemoglobin 13.5 g/dL (13.0-18.0); Mean Corp Hgb Conc. 32.8 g/dL (33.0-37.0); Mean Corpuscular Hgb 30.2 pg (27.0-31.0); Mean Corpuscular Volume 91.9 fL (80.0-94.0); Mean Platelet Volume 9.5 fL (7.4-10.4); Nucleated Red Blood Cells % 0 % (-); Platelet Count 173 10^3/uL (130-400); Red Blood Cell Count 4.47 10^6/uL (4.70-6.10); Red Cell Dist. Width 14.1 % (11.5-14.5); White Blood Cell Count 6.1 10^3/uL (4.8-10.8)
[2023-10-16 10:08] LABS: Blood Urea Nitrogen 16 mg/dl (9-20); Calcium 9.3 mg/dl (8.4-10.2); Carbon Dioxide 28 mmol/L (22-30); Chloride 105 mmol/L (98-107); Glucose 130 mg/dl (70-99); Potassium 4.4 mmol/L (3.5-5.1); Sodium 138 mmol/L (135-145); eGFR > 60.00
[2023-10-16 10:28] LABS: Troponin I 0.318 ng/ml
--- NOTE | 2023-10-16 12:11 | ED.GENMED ---
History of Present Illness
General
Chief Complaint: Chest Pain
Source: patient
Time Seen by Provider: 10/16/23 09:05
History of Present Illness
History of Present Illness:
78-year-old male presents to the emergency room complaining of right shoulder pain. Pain was noted describes it as a dull ache. Not particularly worse with movement. No associated shortness of breath, diaphoresis or nausea. Patient was
hospitalized approximately 3 weeks ago for an inferior wall OK. He had a stent placed in the right coronary artery. Patient was compliant with his medications. He had a change of medications from Brilinta to Plavix because he developed atrial
fibrillation. In addition is changing Brilinta to Plavix he was started on Xarelto. His dose of beta-ludy was also increased. Currently the patient rates the discomfort 1 out of 10. It was more significant earlier like a 5 out of 10.
Past History
Past History
ED Past Medical History: Arrthythmia, Asthma, CAD, HTN and Other (DVT, PE, Sleep apnea, sciatica)
ED Past Surgical History: Appendectomy
Patient has exhibited threatening behavior?: No
PSI?: No
Social History
Tobacco: Non-smoker
Alcohol: None
Personal:
Living: with family
Phy Exam
Physical Exam
Physical Exam:
General: Awake, Alert, Oriented X3. No acute distress.
Vitals: unremarkable
Head: Atraumatic
Eyes: Pupils equal, EOMI
Throat: Airway intact, no exudates
Neck: Trachea midline
Lungs: Clear and equal b/l
Heart: Regular rate, no murmurs
Abd: Soft, Nontender, No pulsatile mass
Neuro: Cranial nerves intact, muscle strength equal bilaterally, cerebellar exam normal
Skin: Warm, dry, no rash
Extremities: pulses equal b/l, no edema
Scores
Heart Score for Chest Pain Patients
STEMI patient?: No
History: Moderately Suspicious
ECG: Nonspecific Repolarization
Age: >/= 65 years
Risk Factors: >/= 3 Risk Factors or History of CAD
Troponin: >/= 3 x Normal Limit
Heart Score for Chest Pain Patients: 8
Heart Score Risk: 72.7 % MACE over next 6 weeks
Course
Orders/Labs/Results
Orders:
Orders
10/16/23 08:52
Electrocardiogram (*1) Urgent
Reason for Study: Chest Pain
EKG- Treatment ONCE
10/16/23 09:28
Cardiac Monitoring- Treatment ONCE
CR Chest - 2 Views Urgent
Comment:
Reason For Exam: chest pain
10/16/23 09:34
Basic Metabolic Panel Urgent
Complete Blood Count/With Diff Urgent
Troponin I Urgent
10/16/23 Lunch
Cholesterol Lowering
At Your Request: Full Participation
10/16/23 12:08
Troponin I Urgent
10/16/23 12:26
Admit/Transfer Patient As Directed
Co-Sign Provider:
Level of Care: Inpatient admission
Assign to:: IVU
Physician / Group: [facility]
Diagnosis: Bradycardia
Reason for Hospitalization: Bradycardia requiring AV wilfredo agents
Expected length of stay greater than two midnights?: Yes
ELOS- Estimated Length of Stay in days: 3
I certify the patient meets the requirements for IP care: Yes
PRN Pain Medication Management As Directed
May give lesser potent ordered pain med per pt: Yes
preference::
Protocol:: Medication orders for pain may be administered in a
manner that supports deferring to patient preference
when the pt is:
-Requesting an ordered lesser potent pain medication.
Least to most potent pain medications are defined as:
acetaminophen < NSAID < tramadol < opioids (morphine,
oxycodone, hydromorphone).
- Requesting a lesser dose of the same medication IF
ORDERED.
- Requesting a less intrusive route of administration
if both routes are prescribed by the provider (PO <
IV).
10/16/23 12:28
Code Status As Directed
Resuscitation Status: Full Code
10/16/23 14:18
Acetaminophen [Tylenol] 650 mg PO Q6HPRN PRN
10/16/23 14:18
Case Management Consult ONCE
Case Management Consult: Discharge Planning
Comment: Please reyes for patient:
Apixaban 5 mg twice daily
Activity As Directed
Activity Level: As Tolerated
EKG PRN [ECG as needed] As Directed
ECG as needed for:: Rhythm Change
INT (Intravenous Needle Therapy) As Directed
Intake/ Output As Directed
Frequency: Per unit guidelines
Vital Signs As Directed
Frequency: Per unit guidelines
Weight As Directed
Frequency: Once
10/16/23 18:00
Atorvastatin [Lipitor] 40 mg PO QPM
Psyllium [Metamucil, Konsyl] 2 packet PO QPM
10/16/23 20:00
Apixaban [Eliquis] 5 mg PO BID
FLUTICASONE PROPIONATE 110 mcg [FLOVENT 110mcg] 2 puff INH R BID
10/17/23 06:00
EKG [Electrocardiogram (*1)] IN AM
Reason for Study: Bradycardia / Tachycardia
BMP [Basic Metabolic Panel] IN AM
TSH Reflex To Free T4 IN AM
10/17/23 08:00
Clopidogrel Bisulfate [Plavix] 75 mg PO DAILY
Fluoxetine HCl [Prozac] 20 mg PO DAILY
Lisinopril [Zestril] 10 mg PO DAILY
10/17/23 12:00
Cholecalciferol (Vitamin D3) [VITAMIN D3 (cholecalciferol)] 25 mcg PO NOON
Abnormal Lab Results
10/16/23 10/16/23
09:34 12:08
RBC 4.47 L 10^6/uL
(4.70-6.10)
MCHC 32.8 L g/dL
(33.0-37.0)
Abs Immat Gran (auto) 0.1 H 10^3/uL
(0-0.05)
Absolute Lymphs (auto) 1.1 L 10^3/uL
(1.2-3.4)
Immature Gran % 0.8 H %
(0-0.5)
Lymphocytes % 17.9 L %
(20.5-51.1)
Monocytes % 10.2 H %
(1.7-9.3)
Glucose 130 H mg/dl
(70-99)
Troponin I 0.318 H* ng/ml 0.325 H* ng/ml
10/16/23 09:34
10/16/23 09:34
Vital Signs
Initial and Last Documented VS:
Initial Vital Signs
Temp Resp
98.3 F 20
10/16/23 08:53 10/16/23 08:53
Last Documented Vital Signs
Temp Pulse Resp BP Pulse Ox
98.4 F 48 16 112/65 98
10/16/23 16:06 10/16/23 16:06 10/16/23 16:06 10/16/23 16:06 10/16/23 16:06
MDM/Problems Addressed
Differential Diagnosis Includes:
Nata's syndrome, stent restenosis, coronary spasm, musculoskeletal pain
MDM/Problems Addressed:
Patient presents with right shoulder pain. EKG does not show evidence for a acute ischemic event. Patient's troponin is elevated at 0.318. Given the amount of time from his stent placement until now I would expect the troponin to be normal
however we will repeat it to see if there is an upward trend. Cardiology consultation requested.
Patient seen by cardiology. They suspect his initial EKG was actually a junctional rhythm. This combined with recent episode of A-fib makes him at high risk for tachybradycardia syndrome or sick sinus syndrome. They would like to hospitalize the
patient for close monitoring and consideration for pacemaker placement. They will also trend his troponin.
*Radiology
Radiology exam reviewed: preliminary read by ED provider (Pressure reviewed the patient's chest x-ray. No acute abnormalities noted)
*Pulse Oximetry
Patient hypoxic: no
*EKG
Interpreted by ED Provider?: Yes
Interpretation: abnormal
Heart Rate: 54
Rate: bradycardiac
Rhythm: junctional
QRS Pattern: right bundle branch block
Ischemia: no ischemia
*Veterinary Technician Interpretation
Rate: bradycardiac
Interpretation: abnormal
Rhythm: sinus
*Critical Care Note
Total Time (30-74mins, 75-104mins- exclusive of procedures): Not Applicable
Data Reviewed
Review of Other/Old Records Reveals: Operative Reports (Recent cardiac catheterization report) and Discharge Summary
Patient Management
Social determinants of health affecting care: Strong social support
Discussion with other providers: [place] (Dr. Rush who will admit the patient)
ED Attending Note
-
Portions of this chart may have been created with voice recognition software.� Occasional wrong word or��sound alike� substitutions may have occurred due to the inherent limitations of voice recognition software.
Discharge Plan
Departure
Patient Disposition: Admit
Date of Disposition: 10/16/23
Time of Disposition: 12:41
Admit to: IVU
Presentation/result/management discussed w/ accepting MD/DO: Dr. Rush
Condition: Fair
Discharge Problem:
Chest pain, Junctional cardiac arrhythmia
Interventions
Interventions:
*Risk Screen - Suicide Last Done: 10/16/23 08:53
*General Assessment Last Done: 10/16/23 08:53
*Neglect/Abuse Screening Last Done: 10/16/23 08:53
ED- Fall Risk Assessment Last Done: 10/16/23 09:53
*ED COVID-19 Vaccine History Last Done: 10/16/23 09:53
*Nursing Disposition Last Done: 10/16/23 14:08
ED- Cardiac Assessment Last Done: 10/16/23 09:53
ED- Neurological Assessment Last Done: 10/16/23 09:53
ED- Pulmonary Assessment Last Done: 10/16/23 09:53
Discharge Date and Time
Discharge Date/Time: 10/16/23 14:09
--- NOTE | 2023-10-16 12:18 | HPS.HSE ---
Addendum entered and electronically signed by Eddi Rush MD 10/16/23 13:11:
I saw and examined the patient.
The MIDDLE CARD TENDER's note was reviewed and I agree with the note.
Comment: 78-year-old gentleman with a past medical history of recent ST elevation OK in 09/28, prior non-STEMI in 2022, ARLEY, aspirin, nonsustained VT with recent diagnosis of atrial fibrillation as primary care doctor's office. At that time, his
care was transitioned from aspirin ticagrelor to Plavix Xarelto 15 mg. Of note in the past she has had a remote history of PE and had taken Xarelto without issue. Today he presents for right shoulder pain that was associated with hypertension.
This has resolved without intervention. However, initial EKG showed junctional rhythm. He reports since his beta-ludy was increased with a diagnosis of PAF, he has been very fatigued. On exam he has a regular rate and rhythm with a normal
S1-S2 no murmurs or gallops were appreciated lungs clear to auscultation bilaterally abdomen soft nontender nondistended extremities are warm well-perfused on clubbing cyanosis or edema. Overall I am concerned about his junctional rhythm and likely
symptomatic bradycardia in the setting of new diagnosis of atrial fibrillation. In review of the outpatient record his A-fib was at a rate of 114 on 12-1/2 of metoprolol necessitating the need for increased beta-ludy. Therefore, there are
multiple indications for beta-ludy however he does not tolerate this with symptomatic fatigue and junctional rhythm. Additionally, if he was in atrial fibrillation as we have no documentation of return of sinus rhythm and rate developed
junctional rhythm, this could be a sign of complete heart block. Will monitor off beta-ludy. Will make n.p.o. after midnight on Wednesday for pacemaker implantation on Wednesday. In regards to his overall anticoagulation, I prefer Eliquis 5 mg
twice a day as this has proven stroke benefit where Xarelto 15 mg well has been proven to be effective in preventing ischemic issues from the cardiac standpoint, less support for effects see to prevent stroke. Therefore if he can afford it we will
change his care to Plavix with 5 of Eliquis twice a day. Will hold Eliquis the morning of the pacer implant. Unclear the source of his right shoulder pain, presenting anginal symptoms were always crushing chest pain. Troponin might be elevated
from his arrhythmia. Will continue to monitor over time. Explain these recommendations and will admit him to the IVU.
Original Note:
Family Physician
-
Family Physician: Linda Rees
Medical Record Coder: Eddi Rush
Chief Complaint
-
Elevated blood pressure
History of Present Illness
Honorio Rebolledo is a 78-year-old male (known to his primary senior information security architect, Dr. Rush) with a past medical history of hypertension, bifascicular block, hyperlipidemia, prior DVT/PE, NSTEMI (10/2022 with peak troponin 5.86 with cardiac catheterization
showing likely occlusion of thenRV marginal, medically managed), ARLEY, PSVT, and chronic stable asthma who presented with acute onset of substernal chest discomfort that was found to have an inferior STEMI. He was found to have a 100% acute
thrombotic distal RCA occlusion status post PCI. His LVEDP was 30 mmHg. During his hospitalization, he had a 6�8 beat run of NSVT. His clopidogrel was transitioned to ticagrelor. His 81 mg of aspirin remained unchanged. His lisinopril was
discontinued and his atorvastatin was increased. Since discharge, he was found to have paroxysmal atrial fibrillation at his PCP office (10/08/2023) and his PCP reached out to Dr. Vela. He was transitioned back to clopidogrel and Xarelto was
added. His lisinopril has been resumed, unclear by which provider.
He presents today with a chief complaint of elevated blood pressure. His BP was 150/99 at home with was high for him. He also woke up with right shoulder pain that did not wake him from sleep last evening. With both of these issues he wanted to be
evaluated in the ER. During STEMI, he had 'crushing chest pain' rated 10/10 with associated diaphoresis and nausea. Cardiology was consulted for a troponin of 0.318. EKG with junctional rhythm and sinus beat.
Medical History
Past Medical History
Past Medical History: Reports Arrhythmia (Paroxysmal atrial fibrillation, NSVT), CAD (STEMI [PCI RCA 09/26/2023]), HTN, Hypercholesterolemia and Other (Dilated aortic root, prior PE/DVT)
Past Surgical History: Reports Appendectomy
Social History
Tobacco: Non-smoker
Alcohol: None
Drug: None
Personal:
Living: With Family
Employment: Retired (career [employer] teacher)
Family History
Family History: Not pertinent
Allergies / Home Medications
Allergies reflects when Allergies were last updated in [employer].
Home Medications with original date entered in [employer]
Allergy/Medication List:
Allergies:
Tetanus and diphtheria toxoid causes hives
Grasses, weeds, ragweed, dust, sneezing
Cats because sneezing
Home medication list:
Acetaminophen 650 mg p.o. every 6 as needed mild pain
Airborne 3 tablets p.o. daily as needed cold symptoms
Atorvastatin 40 mg p.o. daily
Vitamin D3 25 mcg p.o. new
Clopidogrel 75 mg daily
Fluoxetine 20 mg p.o. daily
Fluticasone 1 inhalation daily
Lisinopril 10 mg daily
Metamucil to fiber wafers p.o. every afternoon
Metoprolol succinate 25 mg p.o. daily
Baker-3 2 capsule p.o. new
Rivaroxaban 15 mg p.o. every evening
Saw palmetto 160 mg p.o. new
Vitamin A/C/E 1 tablet p.o. noon
Review of Systems
-
History Source: Patient
A 12 point ROS was completed and negative except as noted: Yes
Constitutional: Reports Fatigue
EENT: Reports No Symptoms
Respiratory: Reports No Symptoms
Cardiac: Reports No Symptoms
Abdomen/GI: Reports No Symptoms
: Reports No Symptoms
Musculoskeletal: Reports No Symptoms
Skin: Reports No Symptoms
Neurological: Reports No Symptoms
Endocrine: Reports No Symptoms
Hematologic/Lymphatic: Reports No Symptoms
Psych: Reports No Symptoms
Physical Exam
Vital Signs
Vital Signs
Temp Pulse Resp BP Pulse Ox
98.3 F 50 15 115/66 90
10/16/23 08:53 10/16/23 11:00 10/16/23 11:00 10/16/23 11:00 10/16/23 11:00
Physical Exam
General: Well Developed, Well Nourished, No Apparent Distress and Comfortable
HEENT: NormoCephalic, Moist mucous membranes and Atraumatic
Respiratory: Clear and Non Labored Respirations
Cardiac: S1/S2 and Bradycardia
Breast: Deferred by me
GI: Soft, Non Tender, Non Distended and Normal Bowel Sounds
Rectal: Deferred by Provider
Genito-urinary: No costovertebral tender
Musculoskeletal: No Clubbing, No Cyanosis and No Edema
Skin: Warm and Dry
Neuro: AO x 3
Hematologic/Lymphatic: No Lymphadenopathy
Psych: Calm
Laboratory Results
-
10/16/23 09:34
10/16/23 09:34
Laboratory Results
Troponin I 0.318 ng/ml H* 10/16/23 09:34
Data Reviewed
-
Diagnostic Radiology: Report Reviewed by me (CXR: CXR: Small right pleural effusion. Mild right basilar probable atelectasis; EKG as above)
Medical Tests (Nuc Med, Echo, EKG etc): Report Reviewed by me (Prior cardiac catheterization as above)
Lab Data: Labs Reviewed by me
Impression/Plan
-
IMPRESSION/PLAN:
Junctional bradycardia
-He endorses fatigue which she has been attributing to beta-ludy
-Hold AV wilfredo agents
-Follow telemetry
Right shoulder pain, now resolved
Abnormal troponin, likely nonischemic myocardial injury
-This could be residual troponin from prior STEMI with peak troponin of 125, recent RVR as documented by PCP, or now bradycardia
-No chest pain
CAD with STEMI 09/26/2023
-PCI to RCA (Kidd)
-Peak troponin 125.0 (09/26/2023), the following day 77.6
-Continue clopidogrel, discontinue rivaroxaban and transition to apixaban
Paroxysmal atrial fibrillation
-Junctional rhythm on metoprolol succinate 25 mg
-Oral Anticoagulation: Xarelto 15 mg daily, stop and start apixaban 5 mg twice daily
-[id number]: score at least 4 (HTN, age 75 or more, Vascular disease)
NSVT, beta ludy now on hold
HTN, chronic and stable
-Lisinopril D/C'd last admission, now resumed
-Stable in ER
HLD, on atorvastatin
Dilated aortic root
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
[2023-10-16 12:42] LABS: Troponin I 0.325 ng/ml
--- NOTE | 2023-10-16 14:21 | PTCARENOTE ---
Patient received from ED. walked into room, SB with PAC's, 5 beat run of A-fib. VSS, on room air, denies pain or shortness of breath
[2023-10-16] MEDS: LIPITOR 40 MG PO (17:21)
[2023-10-16] MEDS: LIDOCAINE 4% PATCH 1 PATCH TOPICAL (17:21)
[2023-10-16] MEDS: METAMUCIL, KONSYL 2 PACKET PO (17:21)
[2023-10-16] MEDS: ELIQUIS 5 MG PO (19:30)
--- NOTE | 2023-10-16 23:50 | PTCARENOTE ---
Pt received start of shift, HR SB/junctional w/ PACs, irregular. Pt w/ own CPAP in room. Pt denies any lightheadedness, dizziness, CP, or SOB. Informed to notify RN if any changes, call tsang within reach.
[2023-10-17 04:49] VITALS: BP 115/77
[2023-10-17 04:58] VITALS: BMI 32.5
[2023-10-17 05:43] LABS: Blood Urea Nitrogen 15 mg/dl (9-20); Calcium 9.1 mg/dl (8.4-10.2); Carbon Dioxide 23 mmol/L (22-30); Chloride 107 mmol/L (98-107); Estimated Creatinine Clearance 87 ml/min; Glucose 97 mg/dl (70-99); Potassium 4.4 mmol/L (3.5-5.1); Sodium 137 mmol/L (135-145); eGFR > 60.00
[2023-10-17 06:13] LABS: TSH Reflex To Free T4 2.91 uIU/ml (0.47-4.68)
[2023-10-17 08:08] VITALS: BP 108/74
--- NOTE | 2023-10-17 08:16 | W.PN.CD ---
Today's Communication / Plan
-
-Pacemaker implantation tomorrow, n.p.o. after midnight.
-Will hold Eliquis for the a.m. dose tomorrow but patient needs to receive clopidogrel without interruption
Impression / Plan
-
78-year-old gentleman with a past medical history of recent ST elevation [place] in 09/28, prior non-STEMI in 2022, ARLEY, aspirin, nonsustained VT with recent diagnosis of atrial fibrillation as primary care doctor's office now presents in junctional
rhythm with fatigue and right shoulder pain.
Tachy-helder syndrome:
-earlier this month AF with RVR running increase beta-ludy dose. Now in a junctional bradycardia on presentation.
-Hold beta-ludy for now
-Pacemaker implantation tomorrow, n.p.o. after midnight. Will hold Eliquis for the a.m. dose tomorrow but patient needs to receive clopidogrel without interruption
-Echo 09/27/2023 EF 60 to 65%.
Paroxysmal atrial fibrillation
-Junctional rhythm on metoprolol succinate 25 mg, imporved of bb, will resume post ppm
-Oral Anticoagulation: initially Xarelto 15 mg daily, stop and started apixaban 5 mg twice daily
-HOLD AM DOSE OF ELIQUIS 10/18/23
-[id number]: score at least 4 (HTN, age 75 or more, Vascular disease)
Right shoulder pain, now resolved
-lidocaine patch ordered at his request
Abnormal troponin, likely nonischemic myocardial injury in the setting of bradyarrhythmia
-No chest pain
-shoulder pain resolved
CAD with STEMI 09/26/2023
-PCI to RCA (Kidd)
-Peak troponin 125.0 (09/26/2023), the following day 77.6
-Continue clopidogrel, apixaban
NSVT, beta ludy now on hold
HTN, chronic and stable
-Lisinopril D/C'd last admission, now resumed
-Stable in ER
HLD, on atorvastatin
Dilated aortic root
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
Subjective:
he is feeling so much better than yesterday, no compliants today
Physical Exam
Vital Signs/Labs
Vital Signs
Temp Pulse Resp BP Pulse Ox
97.9 F 67 16 115/77 97
10/17/23 04:58 10/17/23 07:32 10/17/23 07:32 10/17/23 04:49 10/17/23 07:32
10/16/23 10/17/23 10/18/23
06:59 06:59 06:59
Actual Weight 97 kg
10/16/23 09:34
10/17/23 05:01
LAB Results
10/16/23 10/16/23
09:34 12:08
Troponin I 0.318 H* 0.325 H*
Physical Exam
Constitutional: No acute distress
Cardiovascular: Rhythm & rate is regular, Pedal edema is absent, JVD pressure is normal, Systolic murmur absent and Diastolic murmur absent
Respiratory: Respiratory effort normal, Lungs clear to auscul., Wheeze Absent, Crackles Absent and Rhonchi Absent
Neuro/Psych: AO x 3
Data Reviewed
-
Date of Service: October 17, 2023
Medical Decision Making: Review of Case with other Provider (IVU nursing, must get clopidogrel in am and hold eliquis)
[2023-10-17] MEDS: ELIQUIS 5 MG PO ×2 (08:41→19:19)
[2023-10-17] MEDS: PROZAC 20 MG PO (08:41)
[2023-10-17] MEDS: PLAVIX 75 MG PO (08:41)
[2023-10-17] MEDS: ZESTRIL 10 MG PO (08:41)
[2023-10-17 09:26] LABS: Troponin I 0.323 ng/ml
[2023-10-17 12:15] VITALS: BP 122/74
[2023-10-17] MEDS: VITAMIN D3 (cholecalciferol) 25 MCG PO (12:28)
--- NOTE | 2023-10-17 14:52 | PTCARENOTE ---
Patient with no complaints, walking in room independently, SB with PAC's.Plan of care reviewed, call tsang in reach
[2023-10-17 16:20] VITALS: BP 130/75
[2023-10-17] MEDS: METAMUCIL, KONSYL 2 PACKET PO (18:05)
[2023-10-17] MEDS: LIPITOR 40 MG PO (18:05)
[2023-10-17 19:17] VITALS: BP 121/98
[2023-10-17 22:34] VITALS: BP 115/70
--- NOTE | 2023-10-17 22:42 | PTCARENOTE ---
Pt received start of shift, HR SB/SR w/ PACs and BBB. Reinforced NPO status at 0000 w/ pt. Pt states understanding, no further questions about procedure.
[2023-10-18] VITALS (9 sets, daily range): BP systolic 121–141; BP diastolic 73–96; BMI 32.4
--- NOTE | 2023-10-18 05:19 | PTCARENOTE ---
Pacer prep completed: Clipped site, CHG wipes, gown + bedding changed.
--- NOTE | 2023-10-18 07:28 | W.PN.CD ---
Today's Communication / Plan
-
- PPM today
- Metoprolol to restart post implant.
Impression / Plan
-
78-year-old gentleman with a past medical history of recent ST elevation HI in 09/28, prior non-STEMI in 2022, ARLEY, aspirin, nonsustained VT with recent diagnosis of atrial fibrillation as primary care doctor's office now presents in junctional
rhythm with fatigue and right shoulder pain.
Tachy-helder syndrome:
-earlier this month AF with RVR running increase beta-ludy dose. Now in a junctional bradycardia on presentation.
-Hold beta-ludy for now
-Pacemaker implantation today
-Plan to resume BB post implant.
-Echo 09/27/2023 EF 60 to 65%.
Paroxysmal atrial fibrillation
-Junctional rhythm on metoprolol succinate 25 mg, imporved of bb, will resume post ppm
-Oral Anticoagulation: initially Xarelto 15 mg daily, stop and started apixaban 5 mg twice daily
-HOLD AM DOSE OF ELIQUIS 10/18/23
-[id number]: score at least 4 (HTN, age 75 or more, Vascular disease)
Right shoulder pain, now resolved
-lidocaine patch ordered at his request
Abnormal troponin, likely nonischemic myocardial injury in the setting of bradyarrhythmia
-No chest pain
-shoulder pain resolved
CAD with STEMI 09/26/2023
-PCI to RCA ([facility])
-Peak troponin 125.0 (09/26/2023), the following day 77.6
-Continue clopidogrel, apixaban
NSVT, beta ludy now on hold
HTN, chronic and stable
-Lisinopril D/C'd last admission, now resumed
-Stable in ER
HLD, on atorvastatin
Dilated aortic root
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
Subjective:
Feeling better that the plan is in established. Consent obtained for PPM.
Physical Exam
Vital Signs/Labs
Vital Signs
Temp Pulse Resp BP Pulse Ox
98.3 F 53 20 130/73 96
10/18/23 07:00 10/18/23 06:15 10/18/23 07:00 10/18/23 04:59 10/18/23 07:00
10/17/23 10/18/23 10/19/23
06:59 06:59 06:59
Actual Weight 97 kg 96.5 kg
10/16/23 09:34
10/17/23 05:01
LAB Results
10/16/23 10/16/23 10/17/23
09:34 12:08 08:52
Troponin I 0.318 H* 0.325 H* 0.323 H*
Physical Exam
Constitutional: No acute distress and Comfortable
EENT: Anicteric and Moist mucous membranes
Cardiovascular: Rhythm & rate is regular, Pedal edema is absent, JVD pressure is normal and Systolic murmur present
Respiratory: Labored respirations
GI: Soft, Non tender and Normal bowel sounds
Neuro/Psych: Alert, Oriented and AO x 3
Other: Cardiac Device Site
Data Reviewed
-
Date of Service: October 18, 2023
Medical Decision Making: Reviewed Test Results, Independent Historian Assessment, Test Interpretation and Review of Case with other Provider
EKG: Tracing Personally Visualized and interpreted (Telemetry showed junctiona escape rhythms and frequent ectopic atrial beats)
Echo: Report Reviewed by me
Labs: Labs Reviewed by me
Old Records: Reviewed
[2023-10-18] MEDS: PLAVIX 75 MG PO (08:11)
[2023-10-18] MEDS: PROZAC 20 MG PO (08:11)
[2023-10-18] MEDS: ZESTRIL 10 MG PO (08:11)
[2023-10-18] MEDS: FLUSH (NSS) 1 FLUSH IV (08:13)
--- NOTE | 2023-10-18 08:45 | PTCARENOTE ---
received patient this am, monitor shows SB, VSS,patient remains NPO for pacemaker today.
[2023-10-18] MEDS: VITAMIN D3 (cholecalciferol) 25 MCG PO (12:20)
--- NOTE | 2023-10-18 12:48 | CM ---
Addendum entered by Carol Salgado 10/18/23 13:14:
Telephone call to [facility],([phone]) to check on co-pay for Eliquis 5 mg po bid. He is in the coverage gap. She for a 30 day supply his co-pay would be $143.43 and for a 90 day supply via mail order the co-pay would be $400.00. He can use the
one month free coupon. Placed the coupon in his red discharge folder.
Original Note:
Reviewe chart. Met with Mr. Rebolledo to review discharge plans. He states prior to admission he resides with his spouse in a two story home with two steps to enter. He states he has a first floor living arrangement. He states prior to admission he
was independent with ambulation and adls. He states he has a CPAP Machine at home and no other DME in the home. He states he has a prescription plan and uses [facility]. Medical work-up in progress. The discharge plan is to return home with
his spouse when medically stable.
--- NOTE | 2023-10-18 16:57 | ITS.CL.PACE ---
[facility] - Pacemaker Implant
Pacemaker Implant
Procedure Report:
Dual Chamber Pacemaker Placement:
Mr. Calderon is a very pleasant 78 yrs old gentleman who presented with Tachy Jose syndrome with PAF and is recommended for PPM placement.�
Indications: Tachy Ojse syndrome
Date of the Procedure: 10/18/23
Pre-Operative Diagnosis: Tachy Jose syndrome
Post-Operative Diagnosis: Tachy Jose syndrome
Procedure Performed: DUAL CHAMBER PACEMAKER IMPLANTATION
Performing Physician:
Frandy Alvarado MD
Assistants:
EP staff
Anesthesia:
Midazolam 2 mg and Fentanyl 100 mcg
Pre-operative antibiotics:
Ancef
Detailed Description of the Procedure:
The patient was identified using hospital identification and informed consent obtained for the procedure. The risks were explained including, but not limited to: Bleeding, infection, arrhythmia, stroke, vascular/cardiac/lung puncture, surgery,
pacemaker dependency/device malfunction. All questions were answered.
The patient was brought to the electrophysiology laboratory in stable condition in fasting state. Continuous electrocardiographic and hemodynamic monitoring was initiated.
The initial rhythm was normal sinus rhythm with PACs.
A surgical pause and time out was performed immediately prior to the procedure with review of her medical history, recent labs, allergies and medications with site of procedure identified and consent noted in the chart. Antibiotics pre operatively
given. All team members concurred.
The procedure site was meticulously prepared with surgical scrub and allowed to dry with no pooling. Sterile draping was applied to cover the procedure site. The image intensifier was draped with sterile bag and positioned over the patient.
The left infraclavicular region was prepped and draped in the usual sterile fashion. Local anesthesia was administered subcutaneously using 1% lidocaine / Bupivacaine. The left cephalic vein cutdown was performed with an incision at the
delto-pectoral groove, and vascular sheaths were introduced for lead access. These were advanced into the right ventricle and the right atrium.
The right ventricular lead was secured in position with an active fixation technique at the apical septal location.
The RA lead was attached in the right atrial appendage with active fixation.
There was excellent sensing, pacing, and impedance from the leads, with no diaphragmatic stimulation at 10 V output.�Bovie cautery, antibiotics, and fluoroscopy were used.
The sheaths were withdrawn, and the thresholds remained acceptable. The leads were secured in position at the venous entry site with 2-0 Ethibond. A pocket was fashioned contiguous to the incision. The electrode terminals were connected to the pulse
generator, which was placed into the pocket. The wound was irrigated thoroughly with antibiotic solution.
The wound was closed in 3 layers using 2-0 V loc then two layers of 4-0 V loc sutures to the dermis. Steri-strips were applied externally and covered with Aquacel bandage.
Procedure End:
The procedure was tolerated well.
Estimated Blood loss:
10 cc
Specimens Removed:
No cultures and no specimens were obtained. No intraoperative pathology was identified.
Fluoro time:
2.5min / 9.2mGy
Urine output:
None
Packs / Drains/ Tubes:
None
Instrument / Sponge Count Correct:
Yes
Complications of the Procedure:
None
Condition of Patient at Time of Transfer:
Hemodynamically stable with no neurological or vascular compromise.
Device information:�
Generator: [employer]; Model: W1DR01; Serial # [id number]�
Atrial Lead:
[employer]; Model: 5076-52; Serial # [id number]
Measured data in the right atrium was sensing of 3.3 mV, impedance of 703 ohms and threshold of 0.75 V at 0.4ms.
RV Lead:
[employer]; Model: 5076-58; Serial # [id number]
Measured data in the RV lead was sensing of 8 mV, impedance of 684 ohms and threshold of 0.5 V at 0.4ms�
Jose parameter settings were AAIR < = > DDDR 60-130 bpm. �
����������� Mode Switch: On
����������� Paced AV interval: 180ms
����������� Sensed AV interval: 150 ms.
����������� Rate Adaptive A-V Interval: Off
Output parameters:
����������������������� Amplitude (V)������������� Pulse Width (ms)������� Sensitivity (mV)
����������� RA: ���� 3.5 ����������������� ����������� 0.4������������������ ����������� 0.3
����������� RV:����� 3.5������������������ ����������� 0.4������������������ ����������� 0.9
Summary:
Successful implantation of MRI compatible dual chamber pacemaker
Results/Recommendations:
-Please follow up CXR�
1. Please provide patient with adequate pain control�
Instructions to be given to patient:�
- Please follow up with [facility] at [address] [place] [address] ([phone]) to get your wound checked within 14 days of your discharge.
- Do not wet incision site until after it is evaluated at cardiology clinic. No soaking or bath until then. Showers or Sponge baths are OK.�Dab dry the area after a shower.
- Do not lift left elbow above shoulder, particularly with sudden jerking movements, for 1 month�
- Do not lift anything weighing more than 10 pounds with the left arm for 1 month�
- If you notice any fevers, shortness of breath, lightheadedness, chest pain, or worsening swelling in the wound site, please contact the arrhythmia clinic, contact your international trade specialist, or present to the hospital for evaluation.�
Frandy Alvarado MD
Electrophysiology
--- NOTE | 2023-10-18 17:24 | PTCARENOTE ---
patient returned from cardiac cath technologist, LCW has Acuseal and pressure dsg. with immobilizer on. post EKG completed as ordered. patient has no pain,hematoma oozing at site. patient ordering dinner, at bedside.call tsang within reach.
[2023-10-18] MEDS: LIPITOR 40 MG PO (17:26)
--- NOTE | 2023-10-18 17:39 | PTCARENOTE ---
patient doesn't want 1800 Metamucil at this time,wants to wait until after post xray and able to get OOB.
--- NOTE | 2023-10-18 19:27 | PTCARENOTE ---
Pt. received at change of shift. Pt. seen in room .Pt. AOx3, no complaints at this time. VS WNL. Tele reading NSR. Continuing to monitor pt.
[2023-10-18] MEDS: METAMUCIL, KONSYL PO (19:38)
[2023-10-18] MEDS: TYLENOL 650 MG PO (21:02)
[2023-10-18] MEDS: ANCEF 5 IV (21:03)
[2023-10-19 04:49] VITALS: BP 109/78
[2023-10-19] MEDS: TYLENOL 650 MG PO (04:57)
[2023-10-19] MEDS: ANCEF 5 IV (04:57)
[2023-10-19 05:21] LABS: Hematocrit 42.3 % (39.0-52.0); Hemoglobin 14.3 g/dL (13.0-18.0); Mean Corp Hgb Conc. 33.8 g/dL (33.0-37.0); Mean Corpuscular Hgb 30.4 pg (27.0-31.0); Mean Corpuscular Volume 89.8 fL (80.0-94.0); Platelet Count 152 10^3/uL (130-400); Red Blood Cell Count 4.71 10^6/uL (4.70-6.10); Red Cell Dist. Width 13.9 % (11.5-14.5); White Blood Cell Count 9.2 10^3/uL (4.8-10.8)
[2023-10-19 05:45] LABS: Blood Urea Nitrogen 17 mg/dl (9-20); Calcium 9.2 mg/dl (8.4-10.2); Carbon Dioxide 22 mmol/L (22-30); Chloride 106 mmol/L (98-107); Estimated Creatinine Clearance 87 ml/min; Glucose 101 mg/dl (70-99); Potassium 4.4 mmol/L (3.5-5.1); Sodium 136 mmol/L (135-145); eGFR > 60.00
[2023-10-19 07:34] VITALS: BP 128/86
[2023-10-19] MEDS: ZESTRIL 10 MG PO (07:57)
[2023-10-19] MEDS: TOPROL XL 25 MG PO (07:57)
[2023-10-19] MEDS: PROZAC 20 MG PO (07:57)
[2023-10-19] MEDS: PLAVIX 75 MG PO (07:57)
--- NOTE | 2023-10-19 09:04 | W.PN.CD ---
Today's Communication / Plan
-
-Likely discharge later today.
Impression / Plan
-
78-year-old gentleman with a past medical history of recent ST elevation MS in 09/28, prior non-STEMI in 2022, ARLEY, aspirin, nonsustained VT with recent diagnosis of atrial fibrillation as primary care doctor's office now presents in junctional
rhythm with fatigue and right shoulder pain.
Tachy-helder syndrome:
-earlier this month AF with RVR running increase beta-ludy dose.
-Demand atrial pacing
-s/p Pacemaker implantation 10/17
-Metoprolol restarted
-Echo 09/27/2023 EF 60 to 65%.
Paroxysmal atrial fibrillation
-Junctional rhythm on metoprolol succinate 25 mg,
-Now atrial demand pacing. Frequent PACs noted
-Oral Anticoagulation: started apixaban 5 mg twice daily
-[id number]: score at least 4 (HTN, age 75 or more, Vascular disease)
Right shoulder pain, now resolved
-lidocaine patch ordered at his request
Abnormal troponin, likely nonischemic myocardial injury in the setting of bradyarrhythmia
-No chest pain
-shoulder pain resolved
CAD with STEMI 09/26/2023
-PCI to RCA ([facility])
-Peak troponin 125.0 (09/26/2023), the following day 77.6
-Continue clopidogrel, apixaban
NSVT, beta ludy now on hold
HTN, chronic and stable
-Lisinopril D/C'd last admission, now resumed
-Stable in ER
HLD, on atorvastatin
Dilated aortic root
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
Subjective:
Feeling better that the plan is in established.
Physical Exam
Vital Signs/Labs
Vital Signs
Temp Pulse Resp BP Pulse Ox
97.7 F 66 16 128/86 95
10/19/23 07:32 10/19/23 07:45 10/19/23 07:34 10/19/23 07:34 10/19/23 07:34
10/18/23 10/19/23 10/20/23
06:59 06:59 06:59
Actual Weight 96.5 kg 96.5 kg
10/19/23 04:56
10/19/23 04:56
LAB Results
10/16/23 10/16/23 10/17/23
09:34 12:08 08:52
Troponin I 0.318 H* 0.325 H* 0.323 H*
Physical Exam
Constitutional: No acute distress and Comfortable
EENT: Anicteric and Moist mucous membranes
Cardiovascular: Rhythm & rate is regular, Pedal edema is absent and JVD pressure is normal
Respiratory: Respiratory effort normal and Lungs clear to auscul.
GI: Soft, Non tender and Normal bowel sounds
Neuro/Psych: Alert, Oriented and AO x 3
Data Reviewed
-
Date of Service: October 19, 2023
Medical Decision Making: Reviewed Test Results, Independent Historian Assessment, Test Interpretation and Review of Case with other Provider
EKG: Tracing Personally Visualized and interpreted
Echo: Report Reviewed by me
Labs: Labs Reviewed by me
Old Records: Reviewed
[2023-10-19 11:53] VITALS: BP 125/72
[2023-10-19] MEDS: VITAMIN D3 (cholecalciferol) 25 MCG PO (12:01)
--- NOTE | 2023-10-19 13:01 | W.DS.TRANS ---
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
-
Discharge Instructions:
Discharge Diagnosis/Procedures Tachy-helder syndrome
Medtronic pacemaker placement 10/18/2023
Diet Low Cholesterol,Low Sodium
Activity No strenuous activity
Additional Activity See attached instructions
Driving Restrictions No driving for 1 week
Bathing Restrictions OK to Shower
Instructions:
Stand-Alone Forms: DC Inst - Implanted Device
Changes to Home Medications: Yes
Discharge Medications:
DC Medications w/original date entered in [employer]
fluoxetine 10 mg tablet 20 mg PO DAILY Mental Health/Anxiety 11/01/22
cholecalciferol (vitamin D3) 25 mcg (1,000 unit) tablet (Vitamin D3) 25 mcg PO NOON Supplement ##0 11/10/22
saw palmetto 160 mg capsule 160 mg PO NOON Supplement ##0 11/10/22
acetaminophen 325 mg tablet (Tylenol) 650 mg PO Q6HPRN PRN mild pain 04/17/23
zrcscnqf-quzzflja-ncf C 250 mg-herbal no.124 8.875 mg chewable tablet (Airborne (ascorbic acid)) 3 tab PO DAILYPRN PRN sore throat, cough, sneezing 04/17/23
psyllium husk (with sugar) 2 gram oral wafer (Metamucil Fiber Thin) 2 wafer PO QPM Constipation 04/17/23
vitamin A-vitamin C-vit E-min tablet 1 tab PO NOON Supplement 04/17/23
omega-3 fatty acids-fish oil 684 mg-1,200 mg capsule,delayed release 2 cap PO NOON Home supplement #0 caps 09/28/23
atorvastatin 80 mg tablet 40 mg PO QPM High cholesterol 10/16/23
camphor-menthol 0.2 %-3.5 % topical gel topical Pain 10/16/23
clopidogrel 75 mg tablet (Plavix) 75 mg PO DAILY Autoimmune Disorder 10/16/23
fluticasone furoate 200 mcg/actuation blister powder for inhalation 1 inh inhalation DAILY Lung/Breathing Issues 10/16/23
lisinopril 10 mg tablet 10 mg PO DAILY Blood Pressure 10/16/23
metoprolol succinate 25 mg tablet,extended release 24 hr 25 mg PO DAILY Blood Pressure 10/16/23
apixaban 5 mg tablet (Eliquis) 5 mg PO BID #60 tabs 10/19/23
Home Medication Changes
Xarelto 15 mg was stopped.
Eliquis 5 mg twice daily was started.
Pending Results: No
== END 2023-10-19 14:10 | disposition home or self-care (01) | DRG 242 ==
LOC: IVU 12:46
PROVIDERS: Internal Medicine Cardiovascular Disease; Nurse Practitioner; Nurse Practitioner Gerontology; ADMITTING PHYSICIAN Internal Medicine Cardiovascular Disease; EMERGENCY PHYSICIAN Emergency Medicine; FAMILY PHYSICIAN Nurse Practitioner Adult Health
PROC: 0JH606Z Insertion of Pacemaker, Dual Chamber into Chest Subcutaneous Tissue and Fascia, Open Approach (ICD-10-PCS; 2023-10-18)
PROC: 02HK3JZ Insertion of Pacemaker Lead into Right Ventricle, Percutaneous Approach (ICD-10-PCS; 2023-10-18)
PROC: 02H63JZ Insertion of Pacemaker Lead into Right Atrium, Percutaneous Approach (ICD-10-PCS; 2023-10-18)
DX: I49.5 Sick sinus syndrome (principal); I21.19 ST elevation (STEMI) myocardial infarction involving other coronary artery of inferior wall; I47.20 Ventricular tachycardia, unspecified; G47.33 Obstructive sleep apnea (adult) (pediatric); I10 Essential (primary) hypertension; I25.10 Atherosclerotic heart disease of native coronary artery without angina pectoris; M25.511 Pain in right shoulder; J45.909 Unspecified asthma, uncomplicated; I48.0 Paroxysmal atrial fibrillation; E78.00 Pure hypercholesterolemia, unspecified; I77.810 Thoracic aortic ectasia; I45.10 Unspecified right bundle-branch block; Z95.5 Presence of coronary angioplasty implant and graft; Z86.718 Personal history of other venous thrombosis and embolism; Z86.711 Personal history of pulmonary embolism; I25.2 Old myocardial infarction; Z79.82 Long term (current) use of aspirin; Z88.7 Allergy status to serum and vaccine; Z79.01 Long term (current) use of anticoagulants
CPT/HCPCS: 33208; 71045; 71046; 80048; 84443; 84484; 85025; 85027; 93005; 94640; 99285; C1785; C1892; C1898

== ENCOUNTER 2023-12-06 13:33 | Outpatient (RCR) | payer MEDICARE, OTHER, SELFPAY | END 2023-12-06 23:59 | disposition home or self-care (01) | LOC: CRHB 13:33 | PROVIDERS: ATTENDING PHYSICIAN Internal Medicine | DX: I25.10 Atherosclerotic heart disease of native coronary artery without angina pectoris (principal); Z95.5 Presence of coronary angioplasty implant and graft; I25.2 Old myocardial infarction | CPT/HCPCS: G0422; G0423 ==

== ENCOUNTER → 2023-12-07 06:48 | Outpatient (REF) | payer MEDICARE, OTHER, SELFPAY ==
[2023-12-07 08:43] LABS: Urine Albumin Negative (Neg - Trace); Urine Bilirubin Negative (Negative); Urine Character Clear (Clear); Urine Color Yellow; Urine Glucose Negative (Negative); Urine Ketone Negative (Negative); Urine Leukocyte Negative (Negative); Urine Nitrite Negative (Negative); Urine Occult Blood Negative (Negative); Urine Specific Gravity 1.015 (<1.030); Urine Urobilinogen Negative (Neg - 1+)
[2023-12-07 09:10] LABS: ALT (SGPT) 34 U/L (0-50); AST (SGOT) 41 U/L (17-59); Albumin 4.5 g/dl (3.5-5.0); Alkaline Phosphatase 56 U/L (38-126); Blood Urea Nitrogen 19 mg/dl (9-20); Calcium 9.4 mg/dl (8.4-10.2); Carbon Dioxide 29 mmol/L (22-30); Chloride 103 mmol/L (98-107); Glucose 102 mg/dl (70-99); HDL Cholesterol 41 mg/dl; LDL Cholesterol, Calculated 45 mg/dl; Potassium 4.4 mmol/L (3.5-5.1); Sodium 142 mmol/L (135-145); Total Bilirubin 2.1 mg/dl (0.2-1.3); Total Cholesterol 106 mg/dl (50-199); Total Protein 7.2 g/dl (6.3-8.2); Triglyceride 103 mg/dl (10-149); Very Low Density Lipoprotein 20 mg/dl (0-30); eGFR > 60.00
[2023-12-07 09:11] LABS: Urine Protein 9 mg/dl (0-12)
[2023-12-07 09:38] LABS: Glycohemoglobin (HgbA1c) 5.4 % (4.0-5.6)
== END ==
LOC: HWLAB 06:48
PROVIDERS: ATTENDING PHYSICIAN Internal Medicine; FAMILY PHYSICIAN Nurse Practitioner Adult Health
DX: I10 Essential (primary) hypertension (principal); R80.9 Proteinuria, unspecified; R31.9 Hematuria, unspecified; E78.00 Pure hypercholesterolemia, unspecified; R73.03 Prediabetes
CPT/HCPCS: 36415; 80053; 80061; 81003; 82570; 83036; 84100; 84156

== ENCOUNTER 2023-12-11 11:01 | Emergency (ER) | payer MEDICARE, OTHER, SELFPAY ==
[2023-12-11 11:12] VITALS: BP 135/81
[2023-12-11 12:16] VITALS: BMI 31.2
[2023-12-11 12:22] VITALS: BP 148/97
--- NOTE | 2023-12-11 12:26 | ED.GENMED ---
History of Present Illness
General
Chief Complaint: Numbness
Time Seen by Provider: 12/11/23 12:17
History of Present Illness
History of Present Illness:
78-year-old male with history of coronary artery disease, hypertension myocardial infarction and recent placement department for evaluation pacemaker placement presents to the emergency department for evaluation of left hand numbness first noticed
this morning. He reports that he left thumb, index finger, and middle finger are involved. Denies hand weakness or pain. No fevers, chills, chest pain, or shortness of breath. Does note that he recently started cardiac rehab.
Past History
Past History
ED Past Medical History: Arrthythmia, Asthma, CAD, HTN and Other (DVT, PE, Sleep apnea, sciatica)
ED Past Surgical History: Appendectomy
Patient has exhibited threatening behavior?: No
PSI?: No
Social History
Tobacco: Non-smoker
Alcohol: None
Personal:
Living: with family
Review of Systems
Review of Systems
Allergies reviewed?: Yes
All Other Systems: ROS reviewed and negative except as documented in HPI and ROS
Phy Exam
Physical Exam
Physical Exam:
GEN: Well appearing, NAD, WDWN
HEENT: Oral mucosa moist, no scleral icterus
Cardiac: Regular rate
Lung: No respiratory distress, no tachypnea
MSK: No gross deformity or injuries. Left wrist and hand range of motion normal in all youssef. Positive Tinel sign to the left carpal tunnel, sensation intact to the left hand however patient reports hypoesthesia to the left thumb, index finger,
ring finger, and radial aspect of the ring finger
Skin: Good color, no pallor or jaundice, no rashes
Neuro: AO x3, moves all extremities freely
Psych: Calm, cooperative
Course
Orders/Labs/Results
Orders:
Orders
12/11/23 11:02
Electrocardiogram (*1) Urgent
Reason for Study: Other
Other Reason for Exam: numbness to left hand
EKG- Treatment ONCE
Vital Signs
Initial and Last Documented VS:
Initial Vital Signs
Temp Pulse Resp BP Pulse Ox
97.8 F 64 18 135/81 95
12/11/23 11:12 12/11/23 11:12 12/11/23 11:12 12/11/23 11:12 12/11/23 11:12
Last Documented Vital Signs
Temp Pulse Resp BP Pulse Ox
97.8 F 64 17 148/97 97
12/11/23 11:12 12/11/23 12:22 12/11/23 12:22 12/11/23 12:22 12/11/23 12:22
MDM/Problems Addressed
MDM/Problems Addressed:
Patient has numbness in the distribution of the carpal tunnel with a positive Tinel's sign. No chest pain or shortness of breath concerning for cardiac etiology. About information for carpal tunnel exercises and recommended carpal tunnel brace
purchased [id number], outpatient hand surgery follow-up should symptoms persist
Comment
Comment:
EKG independently interpreted by me shows a paced rhythm at a rate of 71
*Critical Care Note
Total Time (30-74mins, 75-104mins- exclusive of procedures): Not Applicable
ED Attending Note
-
Portions of this chart may have been created with voice recognition software.� Occasional wrong word or��sound alike� substitutions may have occurred due to the inherent limitations of voice recognition software.
Discharge Plan
Departure
Patient Disposition: Home (Routine Discharge)
Date of Disposition: 12/11/23
Time of Disposition: 12:43
Patient with high blood pressure during this ER visit?: No
Discharge Problem:
Carpal tunnel syndrome of left wrist
Instructions: Carpal tunnel syndrome, Carpal Tunnel Exercises
Prescriptions:
No Action
fluoxetine 10 mg Tablet
20 mg PO DAILY
saw palmetto 160 mg Capsule
160 mg PO NOON Qty: 0
cholecalciferol (vitamin D3) [Vitamin D3] 25 mcg (1,000 unit) Tablet
25 mcg PO NOON Qty: 0
acetaminophen [Tylenol] 325 mg Tablet
650 mg PO Q6HPRN PRN (Reason: mild pain)
vitamin A-vitamin C-vit E-min Tablet
1 tab PO NOON
Metamucil Fiber Thin 2 gram Wafer
2 wafer PO QPM
Airborne (ascorbic acid) 250-8.875 mg Tablet,Chewable
3 tab PO DAILYPRN PRN (Reason: sore throat, cough, sneezing )
omega-3 fatty acids-fish oil 684-1,200 mg Capsule,Delayed Release(Dr/Ec)
2 cap PO NOON Qty: 0 0RF
clopidogrel [Plavix] 75 mg Tablet
75 mg PO DAILY
lisinopril 10 mg Tablet
10 mg PO DAILY
metoprolol succinate 25 mg Tablet Extended Release 24 Hr
25 mg PO DAILY
fluticasone furoate 200 mcg/actuation Blister With Device
1 inh INHALATION DAILY
atorvastatin 80 mg tablet
40 mg PO QPM
camphor-menthol 0.2-3.5 % Gel
TOPICAL
Rx Instructions:
to left shoulder
Eliquis 5 mg Tablet
5 mg PO BID Qty: 60 3RF
Referrals:
José Antonio Mixon MD [Active] -
Interventions
Interventions:
*Risk Screen - Suicide Last Done: 12/11/23 11:12
*General Assessment Last Done: 12/11/23 12:16
*Neglect/Abuse Screening Last Done: 12/11/23 11:12
ED- Fall Risk Assessment Last Done: 12/11/23 12:16
*ED COVID-19 Vaccine History Last Done: 12/11/23 11:12
ED- Neurological Assessment Last Done: 12/11/23 12:16
Discharge Date and Time
Print Language: MONTSERRATIAN
== END 2023-12-11 13:01 | disposition home or self-care (01) ==
LOC: EMR 11:01
PROVIDERS: EMERGENCY PHYSICIAN Emergency Medicine; FAMILY PHYSICIAN Nurse Practitioner Adult Health
DX: G56.02 Carpal tunnel syndrome, left upper limb (principal); I10 Essential (primary) hypertension; I25.10 Atherosclerotic heart disease of native coronary artery without angina pectoris; Z95.0 Presence of cardiac pacemaker
CPT/HCPCS: 99283; 93005

== ENCOUNTER 2024-01-05 13:36 | Outpatient (RCR) | payer MEDICARE, OTHER, SELFPAY | END 2024-01-05 23:59 | disposition home or self-care (01) | LOC: CRHB 13:36 | PROVIDERS: ATTENDING PHYSICIAN Internal Medicine | DX: I25.10 Atherosclerotic heart disease of native coronary artery without angina pectoris (principal); Z95.5 Presence of coronary angioplasty implant and graft; I25.2 Old myocardial infarction | CPT/HCPCS: G0422; G0423 ==

== ENCOUNTER 2024-02-04 13:29 | Outpatient (RCR) | payer MEDICARE, OTHER, SELFPAY | END 2024-02-04 23:59 | disposition home or self-care (01) | LOC: CRHB 13:29 | PROVIDERS: ATTENDING PHYSICIAN Internal Medicine | DX: I25.10 Atherosclerotic heart disease of native coronary artery without angina pectoris (principal); Z95.5 Presence of coronary angioplasty implant and graft; I25.2 Old myocardial infarction | CPT/HCPCS: G0422; G0423 ==

== ENCOUNTER 2024-02-11 14:58 | Outpatient (RCR) | payer MEDICARE, OTHER, SELFPAY | END 2024-02-11 23:59 | disposition home or self-care (01) | LOC: CRHB 14:58 | PROVIDERS: ATTENDING PHYSICIAN Internal Medicine | DX: I25.2 Old myocardial infarction (principal); I49.5 Sick sinus syndrome; Z95.5 Presence of coronary angioplasty implant and graft | CPT/HCPCS: G0422; G0423 ==

== ENCOUNTER → 2024-03-10 06:37 | Outpatient (REF) | payer MEDICARE, OTHER, SELFPAY ==
[2024-03-10 09:33] LABS: % Basophils 0.5 % (0-2); % Eosinophils 3.5 % (0-6); % Immature Granulocytes 0.4 % (0-0.5); % Lymphocytes 28.7 % (20.5-51.1); % Monocytes 12.8 % (1.7-9.3); % Neutrophils 54.1 % (42.2-75.2); Absolute Eosinophils 0.2 10^3/uL (0-0.7); Absolute Lymphocytes 1.6 10^3/uL (1.2-3.4); Absolute Monocytes 0.7 10^3/uL (0.1-0.6); Hematocrit 47.4 % (39.0-52.0); Hemoglobin 15.1 g/dL (13.0-18.0); Mean Corp Hgb Conc. 31.9 g/dL (33.0-37.0); Mean Corpuscular Hgb 29.6 pg (27.0-31.0); Mean Corpuscular Volume 92.9 fL (80.0-94.0); Mean Platelet Volume 9.5 fL (7.4-10.4); Nucleated Red Blood Cells % 0 % (-); Platelet Count 159 10^3/uL (130-400); Red Cell Dist. Width 14.9 % (11.5-14.5); White Blood Cell Count 5.5 10^3/uL (4.8-10.8)
[2024-03-10 09:55] LABS: Urine Albumin Negative (Neg - Trace); Urine Bilirubin Negative (Negative); Urine Character Clear (Clear); Urine Color Yellow; Urine Glucose Negative (Negative); Urine Ketone Negative (Negative); Urine Leukocyte Negative (Negative); Urine Nitrite Negative (Negative); Urine Occult Blood Negative (Negative); Urine Specific Gravity 1.015 (<1.030); Urine Urobilinogen Negative (Neg - 1+)
[2024-03-10 10:31] LABS: PSA, Total - Screen 1.99 ng/ml (0.0-4.0); TSH Reflex To Free T4 4.44 uIU/ml (0.47-4.68)
[2024-03-10 11:07] LABS: ALT (SGPT) 53 U/L (0-50); AST (SGOT) 46 U/L (17-59); Albumin 4.4 g/dl (3.5-5.0); Alkaline Phosphatase 71 U/L (38-126); Blood Urea Nitrogen 19 mg/dl (9-20); Calcium 9.2 mg/dl (8.4-10.2); Carbon Dioxide 28 mmol/L (22-30); Chloride 101 mmol/L (98-107); Glucose 98 mg/dl (70-99); Potassium 4.4 mmol/L (3.5-5.1); Sodium 138 mmol/L (135-145); Total Bilirubin 1.3 mg/dl (0.2-1.3); Total Protein 6.9 g/dl (6.3-8.2); eGFR > 60.00
== END ==
LOC: HWLAB 06:37
PROVIDERS: ATTENDING PHYSICIAN Nurse Practitioner Adult Health
DX: I10 Essential (primary) hypertension (principal); E78.2 Mixed hyperlipidemia; E66.9 Obesity, unspecified; Z83.79 Family history of other diseases of the digestive system; G47.33 Obstructive sleep apnea (adult) (pediatric); Z12.5 Encounter for screening for malignant neoplasm of prostate
CPT/HCPCS: 36415; 80053; 81003; 84443; 85025; G0103

== ENCOUNTER → 2024-08-28 07:21 | Outpatient (REF) | payer MEDICARE, OTHER, SELFPAY ==
[2024-08-28 09:48] LABS: ALT (SGPT) 58 U/L (0-50); AST (SGOT) 42 U/L (17-59); Albumin 4.8 g/dl (3.5-5.0); Alkaline Phosphatase 59 U/L (38-126); Blood Urea Nitrogen 15 mg/dl (9-20); Calcium 9.2 mg/dl (8.4-10.2); Carbon Dioxide 25 mmol/L (22-30); Chloride 107 mmol/L (98-107); Glucose 97 mg/dl (70-99); HDL Cholesterol 48 mg/dl; LDL Cholesterol, Calculated 54 mg/dl; Potassium 4.4 mmol/L (3.5-5.1); Sodium 143 mmol/L (135-145); Total Bilirubin 1.7 mg/dl (0.2-1.3); Total Cholesterol 120 mg/dl (50-199); Total Protein 7.3 g/dl (6.3-8.2); Triglyceride 94 mg/dl (10-149); Very Low Density Lipoprotein 18 mg/dl (0-30); eGFR > 60.00
== END ==
LOC: RAD 07:21
PROVIDERS: ATTENDING PHYSICIAN Internal Medicine Cardiovascular Disease; FAMILY PHYSICIAN Nurse Practitioner Adult Health
DX: I77.810 Thoracic aortic ectasia (principal); I21.11 ST elevation (STEMI) myocardial infarction involving right coronary artery; E78.00 Pure hypercholesterolemia, unspecified
CPT/HCPCS: 36415; 71250; 80053; 80061

== ENCOUNTER → 2024-09-14 06:32 | Outpatient (REF) | payer MEDICARE, OTHER, SELFPAY | LOC: HWRAD 06:32 | PROVIDERS: ATTENDING PHYSICIAN Nurse Practitioner Adult Health | DX: R79.89 Other specified abnormal findings of blood chemistry (principal) | CPT/HCPCS: 76700 ==

== ENCOUNTER → 2024-09-27 07:09 | Outpatient (REF) | payer MEDICARE, OTHER, SELFPAY | LOC: HWRAD 07:09 | PROVIDERS: ATTENDING PHYSICIAN Nurse Practitioner Adult Health | DX: I71.40 Abdominal aortic aneurysm, without rupture, unspecified (principal) | CPT/HCPCS: 76770 ==

== ENCOUNTER 2024-09-29 11:56 | Emergency (ER) | payer MEDICARE, OTHER, SELFPAY ==
--- NOTE | 2024-09-29 13:14 | ED.GENMED ---
History of Present Illness
General
Chief Complaint: Skin Problem
Time Seen by Provider: 09/29/24 13:07
History of Present Illness
History of Present Illness:
TIME OF INITIAL EVALUATION
-
REVIEW OF OLD RECORDS
- I reviewed records, the patient has had several visits related to ACS and has had STEMI in September 2023.
Note:
CHIEF COMPLAINT(S)
Localized swelling and redness in the skin, concerned about possible insect bite.
HISTORY OF PRESENT ILLNESS
The patient is a 79-year-old male who presented with redness and swelling on the skin, occurring about three days prior to the visit. He first noticed intense itchiness, which he believed started from an insect or spider bite while outside. Two days
ago, he observed significant swelling and redness. Initially, the patient applied hydrocortisone cream to the area. He was previously seen at urgent care and started on doxycycline. Upon follow-up with his primary care or their backup, the
antibiotic was switched to trimethoprim-sulfamethoxazole (generic Bactrim). The patient reports walking with a limp and has been applying warm compresses. He is currently prescribed a blood thinner, which may contribute to the symptoms. He denies
any fever or other systemic symptoms. Patient agrees to blood work to check platelet count, white blood cell count, and to test for Lyme disease.
EXTERNAL RECORDS REVIEWED
The patient reports prior antibiotic treatment and a prescription change reviewed from his primary care visit.
CHRONIC MEDICAL CONDITIONS SIGNIFICANTLY AFFECTING CARE
Chronic conditions affecting care include the prescription of a blood thinner.
PHYSICAL EXAM
General: Alert, no acute distress.
Skin: There is very dark erythema measuring about 5 cm in diameter near the right medial malleolus, there is a punctate darker area in the center consistent with bite/granulation tissue he states that a scab was removed at urgent care
Musculoskeletal: There is no significant bony tenderness
SUMMARY OF ENCOUNTER
The patient was seen for evaluation of significant redness and swelling suspected to be due to an insect or spider bite located at the medial aspect of the right ankle. Initial treatment included doxycycline, later switched to
trimethoprim-sulfamethoxazole. Examination suggested bruising possibly due to the patients blood thinner.
There was a decision to continue antibiotics and perform blood tests to check platelet count, white blood cell count, and possible Lyme disease.
INDEPENDENT REVIEW OF LABS AND INTERPRETATION OF TESTS
My independent review of recommended tests includes blood work to determine platelet count and white blood cell count, and Lyme disease serology sent out for evaluation.
MEDICATION RECONCILIATION
- Trimethoprim-sulfamethoxazole was prescribed and should be continued.
- The patient is on a blood thinner (unspecified).
MEDICAL DECISION MAKING
- Number and Complexity of Problems Addressed:
Chronic conditions affecting care include the use of antibiotics and a blood thinner. Assessment involved the differential diagnosis of insect/spider bite, cellulitis, bruising related to anticoagulation, and possible Lyme disease.
- Data:
Category 1
Lab tests ordered include blood work for platelet count, white cell count, and Lyme disease serology.
EKG interpretation, not discussed.
- Risk:
Consideration of Admission/Observation: Escalation of care, including admission or observation, was considered given the complexity and risk of the patients presenting complaint, exam findings, and underlying comorbidities. However, ultimately, I
feel the patient is safe for outpatient management with close follow-up. Reasoning: Work-up reassuring, does not reveal any acute life-threatening processes, patients symptoms well controlled upon reevaluation, reexamination is reassuring, vitals
are stable, patient agreeable with discharge, reliable for follow-up.
DIAGNOSIS
- Cellulitis, possibly exacerbated by insect/spider bite (ICD-10: L03.90)
- Monitoring effects of blood thinner on skin (ICD-10: T45.515A)
- Lyme disease screening (ICD-10: A69.20)
- Ecchymosis due to anticoagulation therapy (ICD-10: R23.3)
- He will continue antibiotics for the possible of infection however I more strongly suspect this is an allergic reaction to an insect complicated by some local superficial bleeding related to anticoagulation use
- White count is normal, chemistries relatively unremarkable except total bili 1.6, Lyme pending
Past History
Past History
ED Past Medical History: Arrthythmia, Asthma, CAD, HTN and Other (DVT, PE, Sleep apnea, sciatica)
ED Past Surgical History: Appendectomy
Patient has exhibited threatening behavior?: No
PSI?: No
Social History
Tobacco: Non-smoker
Alcohol: None
Personal:
Living: with family
Phy Exam
Physical Exam
Physical Exam:
See HPI
Course
Orders/Labs/Results
Orders:
Orders
09/29/24 13:38
Complete Blood Count/With Diff Urgent
Comprehensive Metabolic Panel Urgent
Lyme Progressive Urgent
Abnormal Lab Results
09/29/24
13:38
MCHC 32.7 L g/dL
(33.0-37.0)
Absolute Lymphs (auto) 1.0 L 10^3/uL
(1.2-3.4)
Absolute Monos (auto) 0.9 H 10^3/uL
(0.1-0.6)
Lymphocytes % 16.7 L %
(20.5-51.1)
Monocytes % 14.3 H %
(1.7-9.3)
Total Bilirubin 1.6 H mg/dl
(0.2-1.3)
09/29/24 13:38
09/29/24 13:38
Vital Signs
Initial and Last Documented VS:
Initial Vital Signs
Temp Pulse Resp Pulse Ox
36.9 C 82 16 96
09/29/24 11:58 09/29/24 11:58 09/29/24 11:58 09/29/24 11:58
Last Documented Vital Signs
Temp Pulse Resp BP Pulse Ox
36.9 C 85 20 123/79 98
09/29/24 11:58 09/29/24 14:00 09/29/24 14:00 09/29/24 14:00 09/29/24 14:00
*Pulse Oximetry
SaO2: 96
Oxygen Mode of Delivery: Room air
Patient hypoxic: no
*Critical Care Note
Total Time (30-74mins, 75-104mins- exclusive of procedures): Not Applicable
ED Attending Note
-
Portions of this chart may have been created with voice recognition software.� Occasional wrong word or��sound alike� substitutions may have occurred due to the inherent limitations of voice recognition software.
Discharge Plan
Departure
Patient Disposition: Home (Routine Discharge)
Date of Disposition: 09/29/24
Time of Disposition: 14:08
Patient with high blood pressure during this ER visit?: Yes
Discharge Problem:
Allergic reaction to insect bite
Instructions: Skin Rash (DC), BLOOD PRESSURE
Prescriptions:
No Action
fluoxetine 10 mg Tablet
20 mg PO DAILY
saw palmetto 160 mg Capsule
160 mg PO NOON Qty: 0
cholecalciferol (vitamin D3) [Vitamin D3] 25 mcg (1,000 unit) Tablet
25 mcg PO NOON Qty: 0
acetaminophen [Tylenol] 325 mg Tablet
650 mg PO Q6HPRN PRN (Reason: mild pain)
vitamin A-vitamin C-vit E-min Tablet
1 tab PO NOON
Metamucil Fiber Thin 2 gram Wafer
2 wafer PO QPM
Airborne (ascorbic acid) 250-8.875 mg Tablet,Chewable
3 tab PO DAILYPRN PRN (Reason: sore throat, cough, sneezing )
omega-3 fatty acids-fish oil 684-1,200 mg Capsule,Delayed Release(Dr/Ec)
2 cap PO NOON Qty: 0 0RF
clopidogrel [Plavix] 75 mg Tablet
75 mg PO DAILY
lisinopril 10 mg Tablet
10 mg PO DAILY
metoprolol succinate 25 mg Tablet Extended Release 24 Hr
25 mg PO DAILY
fluticasone furoate 200 mcg/actuation Blister With Device
1 inh INHALATION DAILY
atorvastatin 80 mg tablet
40 mg PO QPM
camphor-menthol 0.2-3.5 % Gel
TOPICAL
Rx Instructions:
to left shoulder
Eliquis 5 mg Tablet
5 mg PO BID Qty: 60 3RF
Referrals:
Linda Rees CRNP [Family Provider, General]
Activity Restrictions/Additional Instructions:
Your white blood cell count is normal. Your platelet count is normal. A Lyme test is pending. Doxycycline is commonly used for Lyme. The appearance of the lesion does not appear typical for Lyme disease. We will call you only if the Lyme test
is positive. You could continue either of the antibiotics for now in case there is a component of infection.
Discharge Date and Time
Print Language: POLISH
[2024-09-29 13:58] LABS: Hematocrit 44.0 % (39.0-52.0); Hemoglobin 14.4 g/dL (13.0-18.0); Mean Corp Hgb Conc. 32.7 g/dL (33.0-37.0); Mean Corpuscular Volume 91.7 fL (80.0-94.0); Nucleated Red Blood Cells % 0 % (-); Platelet Count 138 10^3/uL (130-400); Red Cell Dist. Width 13.8 % (11.5-14.5)
[2024-09-29 14:00] VITALS: BP 123/79
[2024-09-29 14:14] LABS: ALT (SGPT) 45 U/L (0-50); AST (SGOT) 35 U/L (17-59); Albumin 4.5 g/dl (3.5-5.0); Alkaline Phosphatase 55 U/L (38-126); Blood Urea Nitrogen 16 mg/dl (9-20); Calcium 9.2 mg/dl (8.4-10.2); Carbon Dioxide 28 mmol/L (22-30); Chloride 104 mmol/L (98-107); Glucose 86 mg/dl (70-99); Potassium 4.8 mmol/L (3.5-5.1); Sodium 138 mmol/L (135-145); Total Protein 7.3 g/dl (6.3-8.2); eGFR > 60.00
[2024-10-02 13:36] LABS: Lyme Antibody Screen, EIA Negative (Negative)
== END 2024-09-29 14:51 | disposition home or self-care (01) ==
LOC: EMR 11:56
PROVIDERS: EMERGENCY PHYSICIAN Emergency Medicine; FAMILY PHYSICIAN Nurse Practitioner Adult Health
DX: T63.481A Toxic effect of venom of other arthropod, accidental (unintentional), initial encounter (principal); Y92.9 Unspecified place or not applicable; J45.909 Unspecified asthma, uncomplicated; I25.10 Atherosclerotic heart disease of native coronary artery without angina pectoris; I10 Essential (primary) hypertension; G47.30 Sleep apnea, unspecified; I25.2 Old myocardial infarction; Z86.718 Personal history of other venous thrombosis and embolism; Z90.49 Acquired absence of other specified parts of digestive tract
CPT/HCPCS: 99283; 80053; 85025; 86618

== ENCOUNTER → 2024-10-20 06:40 | Outpatient (REF) | payer MEDICARE, OTHER, SELFPAY ==
[2024-10-20 10:18] LABS: Albumin 4.5 g/dl (3.5-5.0); Total Protein 7.1 g/dl (6.3-8.2)
[2024-10-20 10:28] LABS: ALT (SGPT) 52 U/L (0-50); AST (SGOT) 41 U/L (17-59); Alkaline Phosphatase 58 U/L (38-126); GGTP 21 U/L (15-73)
== END ==
LOC: HWLAB 06:40
PROVIDERS: ATTENDING PHYSICIAN Nurse Practitioner Adult Health
DX: R79.89 Other specified abnormal findings of blood chemistry (principal); E78.5 Hyperlipidemia, unspecified
CPT/HCPCS: 36415; 80076; 82977

== ENCOUNTER → 2024-10-27 11:43 | Outpatient (REF) | payer MEDICARE, OTHER, SELFPAY ==
[2024-10-27 15:03] LABS: Hematocrit 46.1 % (39.0-52.0); Hemoglobin 14.9 g/dL (13.0-18.0); Mean Corp Hgb Conc. 32.3 g/dL (33.0-37.0); Mean Corpuscular Volume 93.1 fL (80.0-94.0); Nucleated Red Blood Cells % 0 % (-); Platelet Count 155 10^3/uL (130-400); Red Cell Dist. Width 14.1 % (11.5-14.5)
[2024-10-27 15:09] LABS: Uric Acid 4.8 mg/dl (3.5-8.5)
== END ==
LOC: RAD 11:43
PROVIDERS: ATTENDING PHYSICIAN Nurse Practitioner Adult Health
DX: R60.0 Localized edema (principal); L03.115 Cellulitis of right lower limb
CPT/HCPCS: 36415; 84550; 85025; 86618; 93971

== ENCOUNTER → 2024-12-26 08:34 | Outpatient (REF) | payer MEDICARE, OTHER, SELFPAY ==
[2024-12-26 11:19] LABS: Albumin 4.4 g/dl (3.5-5.0); Blood Urea Nitrogen 18 mg/dl (9-20); Calcium 9.1 mg/dl (8.4-10.2); Carbon Dioxide 30 mmol/L (22-30); Chloride 104 mmol/L (98-107); Glucose 89 mg/dl (70-99); Potassium 4.5 mmol/L (3.5-5.1); Sodium 137 mmol/L (135-145); eGFR > 60.00
== END ==
LOC: HWLAB 08:34
PROVIDERS: ATTENDING PHYSICIAN Internal Medicine; FAMILY PHYSICIAN Nurse Practitioner Adult Health
DX: I10 Essential (primary) hypertension (principal); R80.9 Proteinuria, unspecified; R31.9 Hematuria, unspecified
CPT/HCPCS: 36415; 80069; 82570; 84156

== ENCOUNTER → 2025-02-08 07:28 | Outpatient (REF) | payer MEDICARE, OTHER, SELFPAY ==
[2025-02-08 09:01] LABS: Blood Urea Nitrogen 23 mg/dl (9-20); Calcium 9.1 mg/dl (8.4-10.2); Carbon Dioxide 30 mmol/L (22-30); Chloride 104 mmol/L (98-107); Glucose 98 mg/dl (70-99); Potassium 4.7 mmol/L (3.5-5.1); Sodium 138 mmol/L (135-145); eGFR > 60.00
== END ==
LOC: REG 07:28
PROVIDERS: ATTENDING PHYSICIAN Internal Medicine Cardiovascular Disease; FAMILY PHYSICIAN Nurse Practitioner Adult Health
DX: I25.10 Atherosclerotic heart disease of native coronary artery without angina pectoris (principal); I77.810 Thoracic aortic ectasia; Z01.812 Encounter for preprocedural laboratory examination
CPT/HCPCS: 36415; 80048

== ENCOUNTER → 2025-02-15 06:46 | Outpatient (REF) | payer MEDICARE, OTHER, SELFPAY | LOC: RAD 06:46 | PROVIDERS: ATTENDING PHYSICIAN Internal Medicine Cardiovascular Disease; FAMILY PHYSICIAN Nurse Practitioner Adult Health | DX: I25.10 Atherosclerotic heart disease of native coronary artery without angina pectoris (principal); I77.810 Thoracic aortic ectasia | CPT/HCPCS: 71260; Q9967 ==